=== PATIENT | female | born 1990 | race Caucasian/White ===

== ENCOUNTER 2021-01-24 14:41 | Emergency (ER) | payer OTHER, SELFPAY ==
[2021-01-24 14:55] VITALS: BP 107/65; PULSE 76; RESP 18; TEMP 36.6; O2SAT 99
--- NOTE | 2021-01-24 15:10 | ED.DENTAL ---
HPI - Dental/Oral General Chief complaint: Dental/Oral Stated complaint: Toothache Time Seen by Provider: 01/24/21 14:46 Source: patient, RN notes reviewed and old records reviewed Mode of arrival: ambulatory Limitations: no limitations History of Present Illness HPI Narrative: 30 year old female who presents to [facility] care with one week duration of pain to #31 tooth and surrounding gum and left ear pain. Patient has decayed broken #31 tooth with gum swollen and red surrounding the tooth, no drainage noted. Patient has history of anorexia and prior opiate addiction and poor dental care. Patient states that she does not have a dentist. Patient states no difficulty with swallowing or any shortness of breath no trismus noted.Patient has been taking Naprosyn for her pain. MD Complaint: tooth pain Location: Tooth # (#31) Onset (ago): week(s) (1) Duration: constant Severity: severe Severity scale (1-10): 8 Relieving factors: nothing Exacerbating factors: chewing and cold Context: history of dental caries and poor dental care Associated symptoms: gum swelling and ear pain Treatment prior to arrival: oral analgesic (naprosyn) Related Data Home Medications Medication Instructions Recorded Confirmed citalopram 20 mg PO DAILY 01/24/21 01/24/21 naproxen 500 mg PO BID 01/24/21 01/24/21 Allergies Allergy/AdvReac Type Severity Reaction Status Date / Time ibuprofen Allergy Unknown Itching Verified 01/24/21 15:04 FEXOFENADINE HCL Allergy Mild Itching Uncoded 08/01/15 10:45 Review of Systems Review of Systems: Narrative: CONSTITUTIONAL: Denies fever, chills, or sweats. EYES: Denies visual changes, redness, or discharge. ENT: Denies rhinorrhea, congestion, sore throat, positive right ear otalgia.broken decayed tooth #31 CARDIOVASCULAR: Denies chest pain, palpitations, or edema. RESPIRATORY: Denies cough or dyspnea. GASTROINTESTINAL: Denies abdominal pain, nausea, vomiting, or diarrhea. GENITOURINARY: Denies dysuria or hematuria. SKIN: Denies rash or itching. MUSCULOSKELETAL: Denies back pain, joint pain, or myalgia. NEUROLOGIC: Denies headache, numbness, or weakness. PSYCHIATRIC:Positive history of anxiety or depression. All systems reviewed & are unremarkable except as noted in HPI and below [facility] Past Medical History Medical History (Updated 01/27/21 @ 20:34 by Maday Andersen NP) Anorexia Anxiety and depression History of kidney problems states that kidney's don't filter good Surgical History Surgical History (Updated 01/27/21 @ 20:36 by Maday Andersen NP) No pertinent past surgical history Family History Family History (Updated 01/27/21 @ 20:36 by Maday Andersen NP) Other Hypertension Social History Social History (Updated 01/27/21 @ 20:43 by Maday Andersen NP) Smoking status: Unknown if ever smoked Alcohol intake: former Substance use: former 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 There is no relevant family history pertinent to the presenting complaint Exam Narrative: Exam Narrative: GENERAL: Well-appearing, well-nourished, and in mild distress. HEAD: Normocephalic, atraumatic. EYES: PERRLA and EOMI. ENT: Nares clear, no rhinorrhea or epistaxis. Mucous membranes moist.TM's normal with good light reflex, throat pink with no lesions or exudates, no tonsil enlargement, #31 tooth broken with noted decay, surrounding gum red and swollen with pain. No Rojelio angina or trismus noted. NECK: Supple.no lymphadenopathy CHEST: Clear to auscultation. No respiratory distress.SAO2 99% on room air HEART: Regular rate and rhythm. No murmur heard. Normal peripheral pulses. ABDOMEN: Soft, nontender, nondistended, normal active bowel sounds. EXTREMITIES: Normal range of motion. No edema. SKIN: Warm, d
== END 2021-01-24 15:30 | disposition home or self-care (01) ==
PROVIDERS: Emergency Provider Registered Nurse
DX: K04.7 Periapical abscess without sinus (principal); F41.9 Anxiety disorder, unspecified; F32.9 Major depressive disorder, single episode, unspecified
CPT/HCPCS: 99203; G0463

== ENCOUNTER 2021-02-19 16:01 | Emergency (ER) | payer OTHER, SELFPAY ==
[2021-02-19 16:07] VITALS: BP 103/58; PULSE 73; RESP 16; TEMP 36.7; O2SAT 99
== END 2021-02-19 19:00 | disposition left against medical advice (07) ==
LOC: ANHED 18:24
DX: K08.9 Disorder of teeth and supporting structures, unspecified (principal)
CPT/HCPCS: 99199

== ENCOUNTER 2021-04-02 08:00 | Emergency (ER) | payer OTHER, SELFPAY ==
[2021-04-02 08:00] VITALS: BP 101/58; PULSE 103; RESP 20; TEMP 36.4; O2SAT 99
[2021-04-02] MEDS: HYDROmorphone HCL INJ (*CRX) 1 MG/ML SYR IM (08:36)
--- NOTE | 2021-04-02 08:38 | ED.DENTAL ---
HPI - Dental/Oral General Chief complaint: Dental/Oral Stated complaint: r lower tooth pain Time Seen by Provider: 04/02/21 08:26 Source: patient Mode of arrival: ambulatory Limitations: no limitations History of Present Illness HPI Narrative: Patient is 30 years old white female presents with right lower gum severe pain, swelling. Started 4 days ago, started on antibiotics and ibuprofen 800 mg every 8 hours as needed through urgent care 2 days ago without improvement. Patient denies any fever, chills, headache. Related Data Home Medications Medication Instructions Recorded Confirmed citalopram 20 mg PO DAILY 01/24/21 01/24/21 amoxicillin-pot clavulanate tablet 04/02/21 ibuprofen 04/02/21 methadone 04/02/21 Allergies Allergy/AdvReac Type Severity Reaction Status Date / Time ibuprofen Allergy Unknown Itching Verified 04/02/21 08:06 FEXOFENADINE HCL Allergy Mild Itching Uncoded 04/02/21 08:06 Review of Systems Review of Systems: CONSTITUTIONAL: Denies fever, chills, or sweats. EYES: Denies visual changes, redness, or discharge. ENT: Denies rhinorrhea, congestion, sore throat, or otalgia. CARDIOVASCULAR: Denies chest pain, palpitations, or edema. RESPIRATORY: Denies cough or dyspnea. GASTROINTESTINAL: Denies abdominal pain, nausea, vomiting, or diarrhea. GENITOURINARY: Denies dysuria or hematuria. SKIN: Denies rash or itching. MUSCULOSKELETAL: Denies back pain, joint pain, or myalgia. NEUROLOGIC: Denies headache, numbness, or weakness. PSYCHIATRIC: Denies anxiety or depression. 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 Neurologic: Alert and oriented ?3, MICROBIOLOGY ANALYST is normal as tested, no gross motor deficit HENMT: Teeth image: 1. Swollen gum with abscess formation, extremely tender to touch Course Course Emergency Course: Stable Vital Signs Vital signs: Vital Signs Temperature 36.4 C 04/02/21 08:00 Pulse Rate 103 H 04/02/21 08:00 Respiratory Rate 20 04/02/21 08:00 Blood Pressure 101/58 L 04/02/21 08:00 Pulse Oximetry 99 04/02/21 08:00 Temperature 36.4 C 04/02/21 08:00 Pulse Rate 103 H 04/02/21 08:00 Respiratory Rate 20 04/02/21 08:00 Blood Pressure 101/58 L 04/02/21 08:00 Pulse Oximetry 99 04/02/21 08:00 Procedures Abscess I/D oral: Date of Incision: 04/02/21 Time of Incision: 09:19 Side (if applicable): right Local Anesthetic: none Technique: needle aspiration Amount of fluid expressed (mL): 1.5 Irrigation: Yes Packing used?: none I&D Results: Pus Complications: pain Abcess I&D Additional Comments: Right lower gum abscess, 18-gauge needle, 1.5 aspiration of purulent discharge, pat
[2021-04-02 09:06] VITALS: TEMP 36.4
== END 2021-04-02 09:27 | disposition home or self-care (01) ==
PROVIDERS: Emergency Provider Emergency Medicine
DX: K04.7 Periapical abscess without sinus (principal); F41.9 Anxiety disorder, unspecified; F32.9 Major depressive disorder, single episode, unspecified
CPT/HCPCS: 41800; 96372; 99283; J1170

== ENCOUNTER 2021-08-28 19:22 | Emergency (ER) | payer OTHER, SELFPAY ==
[2021-08-28 19:29] VITALS: BP 124/79; PULSE 65; RESP 16; TEMP 36.1; O2SAT 99
--- NOTE | 2021-08-28 19:37 | ED.DENTAL ---
HPI - Dental/Oral General Chief complaint: Dental/Oral Stated complaint: Tooth Pain Time Seen by Provider: 08/28/21 19:33 Source: patient and RN notes reviewed Mode of arrival: ambulatory Limitations: no limitations History of Present Illness HPI Narrative: Patient presents today complaining of right upper gumline pain for the past 3 days with swelling that started a few days ago. Pain is radiating to her right scientologist and eyebrow area. She currently rates her pain 8/10 and has been taking ibuprofen, Tylenol, naproxen, and using some topical Orajel and rinses without much relief. Patient has history of anorexia which has led to gross dental decay. States she does have a dentist and has been trying fixed. Denies recent antibiotic use. States her last dental infection was approximately 6 months ago. MD Complaint: tooth pain Related Data Home Medications Medication Instructions Recorded Confirmed citalopram 20 mg PO DAILY 01/24/21 08/28/21 methadone 04/02/21 Review of Systems Review of Systems: CONSTITUTIONAL: Denies body aches, fever, chills, or sweats. EYES: Denies visual changes, redness, or discharge. ENT: Denies rhinorrhea, congestion, sore throat, or otalgia.+ Dental pain CARDIOVASCULAR: Denies chest pain, palpitations, or edema. RESPIRATORY: Denies cough or dyspnea. GASTROINTESTINAL: Denies abdominal pain, nausea, vomiting, or diarrhea. GENITOURINARY: Denies dysuria or hematuria. SKIN: Denies rash, itching, or wounds. MUSCULOSKELETAL: Denies back pain, joint pain, or myalgia. NEUROLOGIC: Denies headache, numbness, tingling, or weakness. PSYCH: Denies depression or anxiety. 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 Please see nursing chart for further information. There is no relevant family history pertinent to the presenting complaint Exam Narrative: GENERAL: Well-appearing, well-nourished, and in no acute distress. HEAD: Normocephalic, atraumatic. EYES: EOMI. No redness or drainage. Conjunctivae normal. ENT: Mucous membranes pink and moist. Throat normal. Uvula midline. Gross dental decay. Swelling and redness of her right upper gumline. NECK: Normal AROM. Supple. No lymphadenopathy. CHEST: No respiratory distress. EXTREMITIES: Normal range of motion. No edema. SKIN: Warm, dry, no rash. Capillary refill normal. Normal skin turgor. NEURO: No focal deficits. Alert and oriented x3. Gait steady. PSYCH: Normal affect. No signs of depression or anxiety. Course Course Level of Care: Express Care Visit Vital Signs Vital signs: Vital Signs Temperature 97.0 F L 08/28/21 19:29 Pulse Rate 65 08/28/21 19:29 Respiratory Rate 16 08/28/21 19:29 Blood Pressure 124/79 08/28/21 19:29 Pulse Oximetry 99 08/28/21 19:29 Temperature 97.0 F L 08/28/21 19:29 Pulse Rate 65 08/28/21 19:29 Respiratory Rate 16 08/28/21 19:29 Blood Pressure 124/79 08/28/21 19:29 Pulse Oximetry 99 08/28/21 19:29 Reviewed. Pt has been instructed to follow up with her PCP regarding her elevated blood pressure today. MDM - Dental/Oral Differential Diagnosis Differentia
== END 2021-08-28 19:49 | disposition home or self-care (01) ==
PROVIDERS: Emergency Provider Nurse Practitioner
DX: K04.7 Periapical abscess without sinus (principal); F41.9 Anxiety disorder, unspecified; F32.A Depression, unspecified
CPT/HCPCS: 99213; G0463

== ENCOUNTER 2025-01-26 14:04 | Emergency (ER) | payer OTHER, SELFPAY ==
--- NOTE | 2025-01-26 | CONSULT_PTH ---
PATIENT: Naila Harry LOC: [facility] U#:[id number] AGE/SX: 34/F ROOM: RE01/26/[address]: Gucci Hood MD : 1990 BED: DIS: 01/26/2025 SPEC #: [id number] RECD: 01/26/25 17:44 STATUS: MARK REQ #: [id number] KATHLEEN: 01/26/25 00:[address]: Gucci Hood DEPT: [facility] Consult RECD BY: Dashawn Bernabe ENTERED: 01/26/25 17:50 SP TYPE: Consult OTHR DR: SUPER[employer] PHYSICIAN Tissues: A - Peripheral Smear Procedures: Hematology Consult
--- NOTE | ~2025-01-26 | CT_ITS ---
CT brain wo con Ordering provider: Gucci Hood MD History: 34 years Female with . trauma . Comparison: None. Technique: CT of the head without contrast. Radiation reduction technique utilized.The dose-length pr oduct was 605.33 mGy-cm. FINDINGS: BRAIN PARENCHYMA AND CSF SPACES: No midline shift, mass effect or hemorrhage. The brain parenchyma a nd CSF spaces are otherwise normal. VISUALIZED PARANASAL SINUSES: Well aerated. MASTOIDS: Well aerated. BONES: The bones appear intact. SOFT TISSUES: Visualized nasopharynx is normal. Superficial soft tissues are normal. IMPRESSION: No acute intracranial findings. Reviewed, dictated and finalized at location A.
[2025-01-26 14:07] VITALS: BP 116/88; PULSE 134; RESP 16; TEMP 36.4; O2SAT 100
--- OUTSIDE RECORDS SUMMARY | 2025-01-26 14:12 | XMS_ITS | Patient Health Record ---
Author Organization [facility] Address [address] [place] [address] Care Team Providers Care Contact Center Rep Name Role Phone Dashawn Earl Primary Care Provider [phone] Solitario Smith Unavailable [phone] Gavin Tavarez Unavailable [phone] Ana Gallo Unavailable [phone] Jerome Montez Unavailable [phone] Elly Landis Unavailable [phone] Marjorie Garza Unavailable [phone] Gisella Rivera Unavailable [phone] Allergies No Known Allergies Results Component Value Reference Range Notes Urinalysis In-House, Routine Reviewed date:07/23/2024 01:31:49 PM Interpretation: Performing Lab: Notes/Report: Urine-Color clear Appearance yadi Leukocytes neg Nitrite, Urine pos Urobilinogen,Semi-Qn 0.2 Protein neg pH 5.5 Occult Blood mod Specific [place] 1.030 Ketones neg Bilirubin neg Glucose neg 14 Panel Urine Drug Screen Reviewed date:01/05/2025 01:50:29 PM Interpretation: Performing Lab: Notes/Report: THC POS LINDA neg MOP (OPI) POS AMP neg MET neg BAR neg BZO POS MDMA neg MTD neg OXY neg PCP neg BUP POS TCA neg FTY neg Medication Assisted Treatmen t (MAT) Buprenorphine, Norbuprenorphine, and Naloxone MS Confirmation, Urine Reviewed date:01/12/2025 09:37:38 AM Interpretation: Performing Lab:[employer], [address] [place] [address], Phone - [phone], Director - [facility] Notes/Report: Creatinine 33 >=20 mg/dL REFERENCE RANGE : Ref Range>=20 BUPRENORPHINE ++POSITIVE++ Buprenorphine 233 Norbuprenorphine 576 N/B Ratio 2.47 >=0.3 OPIATE ANTAGONIST ++POSITIVE++ Naloxone 1567 Testing Threshold: buprenorphine, 1.0 ng/mL norbuprenorphine, 5.0 ng/mL naloxone, 10 ng/mL This test was developed and its performance characteristics determined by [facility]. It has not been cleared or approved by the Food and Drug Administration. 12 Panel Urine Drug Screen Reviewed date:07/23/2024 01:40:55 PM Interpretation: Performing Lab: Notes/Report: THC POS LINDA neg MOP (OPI) neg AMP neg MET neg BAR neg BZO POS MDMA neg MTD neg OXY neg PCP neg BUP POS 12 Panel Urine Drug Screen Reviewed date:08/27/2024 08:45:33 AM Interpretation: Performing Lab: Notes/Report: THC pos LINDA neg MOP (OPI) neg AMP neg MET neg BAR neg BZO pos MDMA neg MTD neg OXY neg PCP neg BUP pos 12 Panel Urine Drug Screen Reviewed date:11/06/2024 09:56:20 AM Interpretation: Performing Lab: Notes/Report: THC POS LINDA neg MOP (OPI) neg AMP neg MET neg BAR neg BZO neg MDMA neg MTD neg OXY neg PCP neg BUP POS Medication Assisted Treatmen t (MAT) Buprenorphine, Norbuprenorphine, and Naloxone MS Confirmation, Urine Reviewed date:03/16/2024 09:14:04 AM Interpretation: Performing Lab:[facility], [address] [place] [address], Phone - [phone], Director - [facility] Notes/Report: Creatinine 73 Testing Threshold: buprenorphine, 1.0 ng/mL norbuprenorphine, 5.0 ng/mL naloxone, 10 ng/mL This test was developed and its performance characteristics determined by [facility]. It has not been cleared or approved by the Food and Drug Administration. REFERENCE RANGE: Ref Range>=20 BUPRENORPHINE ++POSITIVE++ Buprenorphine 170 Norbuprenorphine 556 N/B Ratio 3.27 >=0.3 OPIATE ANTAGONIST ++POSITIVE++ Naloxone 533 12 Panel Urine Drug Screen Reviewed date:03/30/2024 09:10:05 AM Interpretation: Performing Lab: Notes/Report: THC POS LINDA neg MOP (OPI) neg AMP neg MET neg BAR neg BZO neg MDMA neg MTD neg OXY neg PCP neg BUP POS 12 Panel Urine Drug Screen Reviewed date:05/12/2024 01:45:49 PM Interpretation: Performing Lab: Notes/Report: THC POS LINDA neg MOP (OPI) neg AMP neg MET neg BAR neg BZO neg MDMA neg MTD neg OXY neg PCP neg BUP POS 14 Panel Urine Drug Screen Reviewed date:12/25/2024 02:52:18 PM Interpretation: Performing Lab: Notes/Report: THC POS LINDA neg MOP (OPI) POS AMP neg MET neg BAR neg BZO POS MDMA neg MTD neg OXY neg PCP neg BUP POS TCA neg FTY neg 12 Panel Urine Drug Screen Reviewed date:03/11/2024 01:19:38 PM Interpretation: Performing Lab: Notes/Report: THC POS LINDA neg MOP (OPI) neg AMP neg MET neg BAR neg BZO neg MDMA neg MTD neg OXY neg PCP neg BUP POS Urinalysis In-House, Routine Reviewed date:02/11/2024 11:42:29 AM Interpretation: Performing Lab: Notes/Report: Urine-Color CLOUDY Appearance DARK Leukocytes N Nitrite, Urine P Urobilinogen,Semi-Qn 0.2 Protein N pH 7.0 Ketones NEG Bilirubin NEG Glucose NEG 12 Panel Urine Drug Screen Reviewed date:02/11/2024 11:42:29 AM Interpretation: Performing Lab: Notes/Report: THC POS LINDA NEG MOP (OPI) NEG AMP NEG MET NEG BAR NEG BZO NEG MDMA NEG MTD NEG OXY NEG PCP NEG BUP POS 12 Panel Urine Drug Screen Reviewed date:06/16/2024 02:33:42 PM Interpretation: Performing Lab: Notes/Report: THC POS LINDA neg MOP (OPI) neg AMP neg MET neg BAR neg BZO POS MDMA neg MTD neg OXY neg PCP neg BUP POS 12 Panel Urine Drug Screen Reviewed date:05/22/2024 02:09:10 PM Interpretation: Performing Lab: Notes/Report: THC POS LINDA NEG MOP (OPI) NEG AMP NEG MET NEG BAR NEG BZO POS MDMA NEG MTD NEG OXY NEG PCP NEG BUP POS Reason For Referral Reason Counseling (brief or long-term), significant other has terminal illness Diagnosis 1 Opioid use disorder (F11.99) Referral Organization [facility] Referring Provider First Name Gisella Referring Provider Last Name Miguel Referring Provider Speciality Psychiatry Referred Provider Specialty Behavioral [facility] Clinical Notes Adelina Acosta 024 11:21:37 AM > HN contacted client regarding referral for starting therapy with [facility]. HN provided client with process of calling central access for same day scheduling. Client was agreeable with the referral and stated no other needs at this time. Referral Priority Routine Reason Therapy = Client anish cheek benefit from immediate short term time limited therapy. She was able to get into therapy at [facility] in mid-July but is suffering with extreme anxiety/depression r/t BF's terminal illness. Diagnosis 1 Bipolar 1 disorder, depressed (F31.9) Diagnosis 2 Anxiety disorder, un specified (F41.9) Diagnosis 3 Insomnia, unspecifie d type (G47.00) Referral Organization [facility] Referring Provider First Name Jerome Referring Provider Last Name Tc Referring Provider Speciality Psychiatry Referred Provider Specialty Behavioral [facility] Clinical Notes Jenny Lino 02:36:07 PM > states has therapist at [facility] Referral Priority Routine Medications Medication SIG (Take, Route, Frequency, Duration) Notes Start Date End Date Status Buprenorphine HCl-Naloxone HCl 4-1 MG 1 film under the tongue and allow to dissolve Sublingual three times daily; Duration: 15 days 01/05/2025 Active Buprenorphine HCl-Naloxone HCl 8-2 MG 1 film under the tongue and allow to dissolve Sublingual three times daily; Duration: 15 days 01/05/2025 Active OLANZapine 15 MG 1 tablet at bedtime Orally Once a day; Duration: 30 days . 05/28/2024 Active busPIRone HCl 10 MG 1 tablet Orally Twic e a day Active hydrOXYzine HCl 25 MG 1-2 tablet as need ed Orally at bedtime; Duration: 30 days 12/17/2023 Active traZODone HCl 100 MG 2 tablets at bedtim e Orally Once a day; Duration: 30 days . 05/22/2024 Active Albuterol Sulfate HFA 108 (90 Base) MCG/ACT 1 puff as needed Inhalation every 4 hrs Active cloNIDine HCl 0.1 MG 1 tablet Orally twi ce a day 09/12/2022 Not-Taking Folic Acid 1 MG 1 tablet Once a day Active buPROPion HCl ER (XL) 300 MG TAKE 1 TABLET BY MOUTH EVERY MORNING; Duration: 30 days Active Vitamin B1 100 MG 1 tablet Once a day Active LORazepam 1 MG 1 tablet Once a day; Duration: 30 days As needed for extreme anxiety or panic attack . 12/28/2024 Active FLUoxetine HCl 40 MG 1 capsule Orally On ce a day; Duration: 30 days . 05/28/2024 Active OLANZapine 5 MG 0.5 - 1 tablet Orally Once a day; Duration: 30 days As needed for severe anxiety . 06/10/2024 Active FLUoxetine HCl 20 MG 1 capsule (take wit h 40 mg capsule for 60 mg daily total) Orally Once a day; Duration: 30 days . 08/03/2024 Active Immunizations Vaccine Route Administration Date Status Comme nts FLU VAC NO PRSV 4VAL 6 mo+ IM Intramuscular 05/13/2023 Administered Kenia Bernabe 05/13/2023 10:01:26 AM > Patient tolerated injection well. Social History Tobacco Use: Social History Observation Description Date Details (start date - stop date) Current Smoker NA - NA Sex Assigned At : Social History Observation Description Sex Assigned At Female PRAPARE Question Answer Notes Date Completed/Updated: 03/11/2024 What is your current housing situation? I have housing Are you worried about losing your housing? No What is the highest level of school that you have finished? 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 Check all that apply I do not have problems meeting my needs Has lack of transportation k ept you from medical appointments, meetings, work or from getting things needed for daily living? No How often do you see or talk to people that you care about and feel close to? (For example: talking to friends on the phone, visiting friends or family, going to spiritism or club meetings) More than 5 times a week How stressed are you? Stress is when someone feels tense, nervous, anxious, or can\t sleep at night because their mind is troubled Somewhat In the past year have you sp ent more than 2 nights in a row in a long-term, penitentiary, half-way center, or juvenile correctional facility? No Are you a refugee? No What country are you from? [place] Do you feel physically and e motionally safe where you currently live? Yes In the past year, have you b een afraid of your partner or ex-partner? No PRAPARE Score: 9 Tobacco Control (Standard) Question Answer Notes Tobacco use: Current smoker Additional Findings: Tobacco user e-cigarette Problems Problem Type SNOMED Code ICD Code Onset Dates Problem Status W/U Status Risk Notes Problem Anxiety disorder (083729728) Anxiety disorder, unspecified (F41.9) Active confirmed Problem Psychoactive substance dependence (5342876) Chemical dependency (F19.20) Active confirmed Problem Anxiety (19929645) Situational anxiety (F41.8) Active confirmed Problem Bipolar disorder (42580050) Bipolar 1 disorder, depressed (F31.9) Active confirmed Problem Insomnia (963729913) Insomnia, unspecified type (G47.00) Active confirmed Problem Reactive depression (situational) (25881161) Situational depression (F43.21) Active confirmed Problem Opioid use disorder (3198338528) Opioid use disorder (F11.99) Active confirmed Problem Tobacco user (563387306) Nicotine dependence with current use (F17.200) Active confirmed Problem Mental disorder caused by drug (514542692) Opioid use with opioid-induced disorder (F11.99) Active confirmed Vital Signs Heart Rate 90 /min 01/05/2025 Temperature 98.0 degrees Fahrenheit 11/06/2024 Respiratory Rate 16 /min 01/05/2025 Oximetry 96 % 01/05/2025 Blood pressure diastolic 52 mm Hg 01/05/2025 Height 64 in 01/05/2025 Blood pressure systolic 92 mm Hg 01/05/2025 Weight 131 lb 2 oz lbs 01/05/2025 BMI 22.51 kg/m2 01/05/2025 Encounters Encounter Location Date Provider Diagnosis [address] [place] [address] 02/10/2024 Gavin Tavarez Pyelonephritis of right kidney N12 ; Opioid use with opioid-induced disorder F11.99 and Nicotine dependence, unspecified, uncomplicated F17.[address] [place] [address] 03/11/2024 Gisella Szlufik Opioid use disorder F11.[address] [address] 03/11/2024 Ana Gallo [address] [address] 03/30/2024 Gisella Szlufik Opioid use disorder F11.99 and Nicotine dependence, unspecified, uncomplicated F17.[address] [address] 05/12/2024 Gisella Szlufik Opioid use disorder F11.99 and Nicotine dependence, unspecified, uncomplicated F17.[address] [address] 05/22/2024 Dashawn Earl Opioid use with opioid-induced disorder F11.99 ; Anxiety disorder, unspecified F41.9 ; Depression, unspecified F32.A ; Insomnia, unspecified type G47.00 and Nicotine dependence, unspecified, uncomplicated F17.[address] [address] 05/28/2024 Jerome Montez Nicotine dependence, unspecified, uncomplicated F17.200 ; Bipolar 1 disorder, depressed F31.9 and Anxiety disorder, unspecified F41.[address] [address] 06/10/2024 Jerome Montez Bipolar 1 disorder, depressed F31.9 ; Anxiety disorder, unspecified F41.9 and Insomnia, unspecified type G47.[address] [address] 06/16/2024 Gisella Szlufik Opioid use disorder F11.99 and Nicotine dependence, unspecified, uncomplicated F17.[address] [address] 06/30/2024 Jerome Montez Bipolar 1 disorder, depressed F31.9 ; Insomnia, unspecified type G47.00 and Anxiety disorder, unspecified F41.[address] [place] [address] 07/23/2024 Dashawn Earl Urinary symptom or sign R39.9 ; Opioid use disorder F11.99 and Nicotine dependence, unspecified, uncomplicated F17.[address] [address] 08/03/2024 Jerome Montez Bipolar 1 disorder, depressed F31.9 ; Insomnia, unspecified type G47.00 and Anxiety disorder, unspecified F41.[address] [address] 08/27/2024 Dashawn Earl Opioid use disorder F11.99 and Nicotine dependence, unspecified, uncomplicated F17.[address] [address] 09/07/2024 Jerome Montez Bipolar 1 disorder, depressed F31.9 ; Anxiety disorder, unspecified F41.9 and Insomnia, unspecified type G47.[address] [address] 11/06/2024 Solitario Smith Opioid use with opioid-induced disorder F11.99 and Nicotine dependence with current use F17.[address] [address] 12/25/2024 Elly Landis Opioid use with opioid-induced disorder F11.99 and Nicotine dependence with current use F17.[address] [address] 12/28/2024 Jerome Montez Bipolar 1 disorder, depressed F31.9 ; Anxiety disorder, unspecified F41.9 and Insomnia, unspecified type G47.[address] [address] 01/05/2025 Gisella Rivera Opioid use with opioid-induced disorder F11.[address] [address] 02/10/2024 Gisella Rivera [address] [place] [address] 06/08/2024 Jerome Montez [address] [address] 06/26/2024 Jerome Montez [address] [address] 07/01/2024 Jerome Montez [address] [address] 07/02/2024 Jerome Montez Bipolar 1 disorder, depressed F31.[address] [address] 07/29/2024 Jerome Montez [address] [address] 12/11/2024 Jerome Montez Bipolar 1 disorder, depressed F31.9 ; Anxiety disorder, unspecified F41.9 and Insomnia, unspecified type G47.[address] [address] 01/01/2025 Marjorie Garza Assessments Encounter Date Diagnosis (ICD Code) Assessment Notes Treatment Notes Treatment Clinical Notes Section Notes 02/10/2024 Pyelonephritis of right kidney (ICD-10 - N12) 03/11/2024 Opioid use disorder (ICD-10 - F11.99) 03/30/2024 Nicotine dependence, unspecified, uncomplicated (ICD-10 - F17.200) 03/30/2024 Opioid use disorder (ICD-10 - F11.99) 05/12/2024 Nicotine dependence, unspecified, uncomplicated (ICD-10 - F17.200) 05/12/2024 Opioid use disorder (ICD-10 - F11.99) 05/22/2024 Anxiety disorder, unspecified (ICD-10 - F41.9) 05/22/2024 Opioid use with opioid-induced disorder (ICD-10 - F11.99) 05/28/2024 Nicotine dependence, unspecified, uncomplicated (ICD-10 - F17.200) Client agreeable to starting olanzapine/fluox etine combination to treat high levels of anxiety/depressi on that appears to also have basis in bipolar 1 when carefully screened. Client with high level of stressors currently as BF dx with rare form of cancer and has not been doing well. 05/28/2024 Bipolar 1 disorder, depressed (ICD-10 - F31.9) Client agreeabl e to starting olanzapine/fluox etine combination to treat high levels of anxiety/depressi on that appears to also have basis in bipolar 1 when carefully screened. Client with high level of stressors currently as BF dx with rare form of cancer and has not been doing well. 06/10/2024 Bipolar 1 disorder, depressed (ICD-10 - F31.9) Client agreeabl e to increase in olanzapine and fluoxetine to aide with anxiety and depression and trazodone to aide with insomnia. Ativan refilled for use as rescue medication for panic attacks and to be used as secondary medication only. 06/16/2024 Nicotine dependence, unspecified, uncomplicated (ICD-10 - F17.200) 06/16/2024 Opioid use disorder (ICD-10 - F11.99) 06/30/2024 Bipolar 1 disorder, depressed (ICD-10 - F31.9) Increase to trazodone and olanzapine at night ordered and olanzapine changed to disintegrating to help with sleep initiation. Referral placed for request for immediate short term therapy to bridge client till mid July appt at [facility]. Client is agreeable to these treatment plan changes. 07/02/2024 Bipolar 1 disorder, depressed (ICD-10 - F31.9) 07/23/2024 Urinary symptom or sign (ICD-10 - R39.9) 07/23/2024 Opioid use disorder (ICD-10 - F11.99) 08/03/2024 Bipolar 1 disorder, depressed (ICD-10 - F31.9) Client notably better in affect during session despite continued high PHQ-9 scoring. Client able to recognize realistic goals and much calmer with better control of anxiety. She requests a medication adjustment if something could make me happier. Discussed that she is going through very difficult time and may struggle to find rodriguez in this season. Discussed can raise fluoxetine from 40 mg to 60 mg to see if helpful but to watch for signs/symptoms of elias (discussed what those are) and to call office should these occur or if anxiety would worsen not get better with higher dosage. Client verbalizes understanding. 08/27/2024 Opioid use disorder (ICD-10 - F11.99) 09/07/2024 Bipolar 1 disorder, depressed (ICD-10 - F31.9) Client is open to trial of bupropion in am to see if helpful for motivation/depre ssion. However, it was discussed with client that the circumstances she is in may not be effected by medication given the dense emotional toil she is impacted with on daily basis. Encouraged continuation of therapy with focus on grief counseling. Client given emotional support and normalization of grief process. No other changes to treatment plan. 11/06/2024 Nicotine dependence with current use (ICD-10 - F17.200) 11/06/2024 Opioid use with opioid-induced disorder (ICD-10 - F11.99) 12/11/2024 Bipolar 1 disorder, depressed (ICD-10 - F31.9) 12/25/2024 Opioid use with opioid-induced disorder (ICD-10 - F11.99) Increased freq of appts with current UDS positive, call with any issues/concerns. Significant other on hospice, encouraged to be in communication with support system frequently. Patient agrees to take medication as prescribed. Discussed medication side effects, adverse effects, risks, benefits, as well as interactions. Encouraged non-use of opioids. Client to make provider aware of any medication changes that could interact with treatment. Recommended participation in recovery groups/counseling services to help maintain sobriety. May contact the office with any questions or concerns. 12/28/2024 Bipolar 1 disorder, depressed (ICD-10 - F31.9) 01/05/2025 Opioid use with opioid-induced disorder (ICD-10 - F11.99) Encouraged positive coping mechanisms 12/25/2024 Nicotine dependence with current use (ICD-10 - F17.200) 12/28/2024 Anxiety disorder, unspecified (ICD-10 - F41.9) 12/11/2024 Anxiety disorder, unspecified (ICD-10 - F41.9) 09/07/2024 Anxiety disorder, unspecified (ICD-10 - F41.9) Client is open to trial of bupropion in am to see if helpful for motivation/depre ssion. However, it was discussed with client that the circumstances she is in may not be effected by medication given the dense emotional toil she is impacted with on daily basis. Encouraged continuation of therapy with focus on grief counseling. Client given emotional support and normalization of grief process. No other changes to treatment plan. 08/03/2024 Insomnia, unspecified type (ICD-10 - G47.00) Client notably better in affect during session despite continued high PHQ-9 scoring. Client able to recognize realistic goals and much calmer with better control of anxiety. She requests a medication adjustment if something could make me happier. Discussed that she is going through very difficult time and may struggle to find rodriguez in this season. Discussed can raise fluoxetine from 40 mg to 60 mg to see if helpful but to watch for signs/symptoms of elias (discussed what those are) and to call office should these occur or if anxiety would worsen not get better with higher dosage. Client verbalizes understanding. 08/27/2024 Nicotine dependence, unspecified, uncomplicated (ICD-10 - F17.200) 07/23/2024 Nicotine dependence, unspecified, uncomplicated (ICD-10 - F17.200) 06/30/2024 Insomnia, unspecified type (ICD-10 - G47.00) Increase to trazodone and olanzapine at night ordered and olanzapine changed to disintegrating to help with sleep initiation. Referral placed for request for immediate short term therapy to bridge client till mid July appt at [facility]. Client is agreeable to these treatment plan changes. 06/10/2024 Anxiety disorder, unspecified (ICD-10 - F41.9) Client agreeabl e to increase in olanzapine and fluoxetine to aide with anxiety and depression and trazodone to aide with insomnia. Ativan refilled for use as rescue medication for panic attacks and to be used as secondary medication only. 05/28/2024 Anxiety disorder, unspecified (ICD-10 - F41.9) Client agreeabl e to starting olanzapine/fluox etine combination to treat high levels of anxiety/depressi on that appears to also have basis in bipolar 1 when carefully screened. Client with high level of stressors currently as BF dx with rare form of cancer and has not been doing well. 02/10/2024 Opioid use with opioid-induced disorder (ICD-10 - F11.99) 05/22/2024 Depression, unspecified (ICD-10 - F32.A) 02/10/2024 Nicotine dependence, unspecified, uncomplicated (ICD-10 - F17.200) 05/22/2024 Insomnia, unspecified type (ICD-10 - G47.00) 06/10/2024 Insomnia, unspecified type (ICD-10 - G47.00) Client agreeable to increase in olanzapine and fluoxetine to aide with anxiety and depression and trazodone to aide with insomnia. Ativan refilled for use as rescue medication for panic attacks and to be used as secondary medication only. 06/30/2024 Anxiety disorder, unspecified (ICD-10 - F41.9) Increase to trazodone and olanzapine at night ordered and olanzapine changed to disintegrating to help with sleep initiation. Referral placed for request for immediate short term therapy to bridge client till mid July appt at [facility]. Client is agreeable to these treatment plan changes. 08/03/2024 Anxiety disorder, unspecified (ICD-10 - F41.9) Client notably better in affect during session despite continued high PHQ-9 scoring. Client able to recognize realistic goals and much calmer with better control of anxiety. She requests a medication adjustment if something could make me happier. Discussed that she is going through very difficult time and may struggle to find rodriguez in this season. Discussed can raise fluoxetine from 40 mg to 60 mg to see if helpful but to watch for signs/symptoms of elias (discussed what those are) and to call office should these occur or if anxiety would worsen not get better with higher dosage. Client verbalizes understanding. 09/07/2024 Insomnia, unspecified type (ICD-10 - G47.00) Client is open to trial of bupropion in am to see if helpful for motivation/depre ssion. However, it was discussed with client that the circumstances she is in may not be effected by medication given the dense emotional toil she is impacted with on daily basis. Encouraged continuation of therapy with focus on grief counseling. Client given emotional support and normalization of grief process. No other changes to treatment plan. 12/11/2024 Insomnia, unspecified type (ICD-10 - G47.00) 12/28/2024 Insomnia, unspecified type (ICD-10 - G47.00) 05/22/2024 Nicotine dependence, unspecified, uncomplicated (ICD-10 - F17.200) 02/10/2024 Other Learning About the Safe Use of Antibiotics material was discussed. Pt was educated on use of antibiotic medication including dosing, side effects, adverse effects and anticipated response. Pt was also educated on importance of completing full course of treatment as ordered. Patient voiced understanding of all. 03/11/2024 Other Client agrees to take medication as prescribed. Discussed medication side effects, adverse effects, risks, benefits, as well as interactions. Encouraged non-use of opioids and other illicit substances. Has naloxone. Understand that discontinuing buprenorphine increases the risk of overdose upon return to illicit opioid use. Know that that use of alcohol or benzodiazepines with buprenorphine increases the risk of overdose and . Education provided about safe storage of medications. Encourage participation in recovery groups/counseling services. Patient understands that all treating providers/physici ans should be informed of buprenorphine use as part of a Medication Assisted Recovery program. Contact office with questions or concerns. 03/11/2024 Other Provided case management services to address social determinants of health needs and reduce barriers to health care services. 05/12/2024 Other Client agrees to take medication as prescribed. Discussed medication side effects, adverse effects, risks, benefits, as well as interactions. Encouraged non-use of opioids and other illicit substances. Has naloxone. Discontinuing buprenorphine increases the risk of overdose upon return to illicit opioid use. Use of alcohol or benzodiazepines with buprenorphine increases the risk of overdose and . Education provided about safe storage of medications. Encouraged participation in recovery groups/counseling services. Contact office with questions or concerns. 05[place]28/[place]24 [place] services. Discussed use of lorazapam as short term only until anxiety under control and to use lowest dose possible (0.5 tablet) to limit risks of respiratory depression. Client verbalized understanding. Discussed sleep hygiene and caffeine intake with encouragement to limit electronic devices an hour before bed and to limit caffeine after 3:00pm. Exercise benefits for mood and health discussed. Psychoeducation regarding psychiatric illness provided. Client was educated about risks and benefits of medication, alternatives to medication, off label uses of medication, suicidal ideation with SSRIs, self-administrati on and compliance with medication along with how to safely store medication. Verbal informed consent obtained. Client agrees to return sooner if symptoms worsen or if suicidal or homicidal ideations occur. Client has the phone number to the 24-hour crisis line at [facility]. Questions addressed. Client verbalized understanding of all information and is agreeable to treatment plan. Client agreeable to starting olanzapine/fluox etine combination to treat high levels of anxiety/depressi on that appears to also have basis in bipolar 1 when carefully screened. Client with high level of stressors currently as BF dx with rare form of cancer and has not been doing well. 06/10/[place]24 [place] tx and has been educated to take lorazepam apart from this and in lowest amount possible (0.5 tablet if possible) and for shortest duration possible to limit risk of respiratory depression. Discussed sleep hygiene and caffeine intake with encouragement to limit electronic devices an hour before bed and to limit caffeine after 3:00pm. Exercise benefits for mood and health discussed. Psychoeducation regarding psychiatric illness provided. Client was educated about risks and benefits of medication, alternatives to medication, off label uses of medication, suicidal ideation with SSRIs, self-administrati on and compliance with medication along with how to safely store medication. Verbal informed consent obtained. Client agrees to return sooner if symptoms worsen or if suicidal or homicidal ideations occur. Client has the phone number to the 24-hour crisis line at [facility]. Questions addressed. Client verbalized understanding of all information and is agreeable to treatment plan. Client agreeable to increase in olanzapine and fluoxetine to aide with anxiety and depression and trazodone to aide with insomnia. Ativan refilled for use as rescue medication for panic attacks and to be used as secondary medication only. 06/16/2024 Other Patient agrees to take medication as prescribed. Discussed medication side effects, adverse effects, risks, benefits, as well as interactions. Encouraged non-use of opioids and other illicit substances. Has naloxone. Discontinuing buprenorphine increases the risk of overdose upon return to illicit opioid use. Use of alcohol or benzodiazepines with buprenorphine increases the risk of overdose and . Discussed increased risk of respiratory depression with concurrent use of buprenorphine and benzodiazepines. Education provided about safe storage of medications. Encouraged participation in recovery groups/counseling services. Contact office with questions or concerns. 06/30/2024 [place]. Discussed sleep hygiene and caffeine intake with encouragement to limit electronic devices an hour before bed and to limit caffeine after 3:00pm. Exercise benefits for mood and health discussed. Psychoeducation regarding psychiatric illness provided. Client was educated about risks and benefits of medication, alternatives to medication, off label uses of medication, suicidal ideation with SSRIs, self-administrati on and compliance with medication along with how to safely store medication. Verbal informed consent obtained. Client agrees to return sooner if symptoms worsen or if suicidal or homicidal ideations occur. Client has the phone number to the 24-hour crisis line at [facility]. Questions addressed. Client verbalized understanding of all information and is agreeable to treatment plan. Increase to trazodone and olanzapine at night ordered and olanzapine changed to disintegrating to help with sleep initiation. Referral placed for request for immediate short term therapy to bridge client till mid July appt at [facility]. Client is agreeable to these treatment plan changes. 07/23/2024 Other Potential side effects of buprenorphine discussed, as well as taking buprenorphine as prescribed. Dangers of using other controlled substances (prescribed or illegal/including benzodiazepines) with buprenorphine discussed. Patient understands taking other narcotics with buprenorphine could lead to respiratory distress and even . Patient understands that ALL treating providers/physici ans should be informed of buprenorphine use as part of a Medication Assisted Treatment program 08/03/[place]24 [place]. Discussed sleep hygiene and caffeine intake with encouragement to limit electronic devices an hour before bed and to limit caffeine after 3:00pm. Exercise benefits for mood and health discussed. Psychoeducation regarding psychiatric illness provided. Client was educated about risks and benefits of medication, alternatives to medication, off label uses of medication, suicidal ideation with SSRIs, self-administrati on and compliance with medication along with how to safely store medication. Verbal informed consent obtained. Client agrees to return sooner if symptoms worsen or if suicidal or homicidal ideations occur. Client has the phone number to the 24-hour crisis line at [facility]. Questions addressed. Client verbalized understanding of all information and is agreeable to treatment plan. Client notably better in affect during session despite continued high PHQ-9 scoring. Client able to recognize realistic goals and much calmer with better control of anxiety. She requests a medication adjustment if something could make me happier. Discussed that she is going through very difficult time and may struggle to find rodriguez in this season. Discussed can raise fluoxetine from 40 mg to 60 mg to see if helpful but to watch for signs/symptoms of elias (discussed what those are) and to call office should these occur or if anxiety would worsen not get better with higher dosage. Client verbalizes understanding. 08/27/2024 Other Potential side effects of buprenorphine discussed, as well as taking buprenorphine as prescribed. Dangers of using other controlled substances (prescribed or illegal/including benzodiazepines) with buprenorphine discussed. Patient understands taking other narcotics with buprenorphine could lead to respiratory distress and even . Patient understands that ALL treating providers/physici ans should be informed of buprenorphine use as part of a Medication Assisted Treatment program 09/07/2024 [place]. Discussed sleep hygiene and caffeine intake with encouragement to limit electronic devices an hour before bed and to limit caffeine after 3:00pm. Exercise benefits for mood and health discussed. Psychoeducation regarding psychiatric illness provided. Client was educated about risks and benefits of medication, alternatives to medication, off label uses of medication, suicidal ideation with SSRIs, self-administrati on and compliance with medication along with how to safely store medication. Verbal informed consent obtained. Client agrees to return sooner if symptoms worsen or if suicidal or homicidal ideations occur. Client has the phone number to the 24-hour crisis line at [facility]. Questions addressed. Client verbalized understanding of all information and is agreeable to treatment plan. Client is open to trial of bupropion in am to see if helpful for motivation/depre ssion. However, it was discussed with client that the circumstances she is in may not be effected by medication given the dense emotional toil she is impacted with on daily basis. Encouraged continuation of therapy with focus on grief counseling. Client given emotional support and normalization of grief process. No other changes to treatment plan. 11/06/2024 Other Discussed medication side effects, adverse effects, risks, benefits, as well as interactions. Encouraged non-use of opioids. Has naloxone. Recommended participation in recovery groups and/or counseling services. May contact office with questions or concerns. Patient may self-administ er their own medications or may self-administ er their own oral medications per [facility] Protocol. 12/28/2024 Other Discussed sleep hygiene and caffeine intake with encouragement to limit electronic devices an hour before bed and to limit caffeine after 3:00pm. Exercise benefits for mood and health discussed. Psychoeducation regarding psychiatric illness provided. Client was educated about risks and benefits of medication, alternatives to medication, off label uses of medication, suicidal ideation with SSRIs, self-administrati on and compliance with medication along with how to safely store medication. Verbal informed consent obtained. Client agrees to return sooner if symptoms worsen or if suicidal or homicidal ideations occur. Client has the phone number to the 24-hour crisis line at [facility]. Questions addressed. Client verbalized understanding of all information and is agreeable to treatment plan. 01/05/2025 Other Patient agrees to take medication as prescribed. Discussed medication side effects, adverse effects, risks, benefits, as well as interactions. Encouraged non-use of opioids and other illicit substances. Has naloxone. Discontinuing buprenorphine increases the risk of overdose upon return to illicit opioid use. Use of alcohol or benzodiazepines with buprenorphine increases the risk of overdose and . Education provided about safe storage of medications. Encouraged participation in recovery groups/counseling services. Contact office with questions or concerns. Patient may self-administ er their own medications or may self-administ er their own oral medications per [facility] Protocol. Plan Of Treatment No Information Insurance Providers Payer Name Payer Address Payer Phone Subscriber Number Group Number Insured Name Patient Relationship to Insured Coverage Start Date Coverage End Date [facility] Claims Department [address] [place] [address] [phone] [id number] Naila Harry Self - patient is the insured 0 [employer] Claims Department [address] [place] [address] [phone] [id number] Naila Harry Self - patient is the insured 0 Medical (General) History Medical History History ICD Code OUD [place] Surgical History Surgery Date(Month/Year) Hospitalization History Reason Date(Month/Year) alcohol poisoning 05/2024 [facility] 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
--- OUTSIDE RECORDS SUMMARY | 2025-01-26 14:12 | XMS_ITS | Referral Summary ---
Author Organization [facility] Address [address] [place] [address] Care Team Providers Care Electronic Operator Name Role Phone Prachi Devika Unavailable Unavailable Rubi Rodriguez SOAKER MEAT Primary Care Provider Allergies No known active allergies Medications methadone HCl (METHADONE ORAL) Take 360 mg by mouth daily Active albuterol HFA (PROVENTIL HFA,VENTOLIN HFA,PROAIR HFA) 90 mcg/actuation inhalerIndicati ons:asthma Inhale 2 puffs every 4 (four) hours as needed for wheezing (seasonal allergies). Active omeprazole (PriLOSEC) 20 mg capsule Take 20 mg by mouth daily. Active nicotine (NICODERM CQ) [address] 1 patch on the skin daily. 30 patch 8 Active Additional Information Patient not taking.Reported on 09/28/2022 lidocaine viscous (XYLOCAINE) 2 % solution Take 10 mL by mouth every 3 (three) hours 1 Bottle 9 Active Additional Information Patient not taking.Reported on 09/28/2022 chlorhexidine (PERIDEX) 0.12 % solution Swish 15 mL in mouth for 30 seconds then spit out twice a day after brushing teeth, 473 mL 9 Active Additional Information Patient not taking.Reported on 09/28/2022 folic acid (FOLVITE) 1 mg tabletIndicatio ns:Folate Deficiency Take 1 tablet (1 mg total) by mouth daily 30 tablet 0 Active Additional Information Patient not taking.Reported on 09/28/2022 citalopram (CeleXA) 20 mg tablet Take 20 mg by mouth daily Active cyclobenzaprine (FLEXERIL) 10 mg tablet Take 1 tablet (10 mg total) by mouth 3 (three) times a day as needed for muscle spasms 30 tablet 3 Active Additional Information Patient not taking.Reported on 09/28/2022 hydrOXYzine (VISTARIL) 25 mg capsule Take 1 capsule (25 mg total) by mouth every 4 (four) hours as needed for anxiety 30 capsule 3 Active Additional Information Patient not taking.Reported on 09/28/2022 LORazepam (ATIVAN) 1 mg tablet Take 1 tablet (1 mg total) by mouth every 4 (four) hours as needed for anxiety 12 tablet 3 Active Additional Information Patient not taking.Reported on 09/28/2022 ketorolac (TORADOL) 10 mg tablet Take 1 tablet (10 mg total) by mouth every 4 (four) hours as needed for pain 20 tablet 3 Active Additional Information Patient not taking.Reported on 09/28/2022 vitamin B complex capsule Take 1 capsule by mouth daily Active melatonin 10 mg tablet Active busPIRone (BUSPAR) 15 mg tablet 3 Active buprenorphine-n aloxone (SUBOXONE) 4-1 mg per film 0 3 Active amoxicillin (AMOXIL) 875 mg tabletIndicatio ns:Upper Respiratory/JESSICA NT Infection Take 1 tablet (875 mg total) by mouth 2 (two) times a day 14 tablet 3 Active naproxen (NAPROSYN) 500 mg tablet Take 1 tablet (500 mg total) by mouth 2 (two) times a day with meals 14 tablet 3 Active Active Problems Problem Noted Date Diagnosed Date Alcohol abuse 09/28/2022 Overview (09/28/2022): One bottle of vodka a day. 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 Noted in August 2022 when patient presented with seizure-like episodes likely from polymorphic VT. I recommended use of short term buprenorphine/naloxone which should not cause prolongation of QT interval. Assessment & Plan (09/28/2022 1:18 PM EXPERIMENTAL MECHANIC ELECTRICAL): We discussed the clinical scenario from last month. She has been off methadone since August 2022. Now taking Suboxone. EKG from today showed no more long QT. Severe malnutrition 09/05/2022 Alcohol withdrawal seizure 05/16/2020 Alcohol withdrawal 05/16/2020 Assessment & Plan (05/16/2020 4:39 PM CDT): Seizure occurred prior to arrival, this is her 3rd seizure due to alcohol withdrawal. CIWA protocol ordered. Thiamine, folate, and multivitamin ordered. Warm handoff program consulted. Seizure and fall precautions. Opioid dependence in remission 05/16/2020 Assessment & Plan (05/16/2020 4:40 PM CDT): Continue outpatient methadone dosing of 360 mg daily. GERD (gastroesophageal reflux disease) 0 Assessment & Plan (05/16/2020 4:40 PM CDT): Replace home omeprazole with formulary pantoprazole while inpatient. Asymptomatic bacteriuria 05/16/2020 Assessment & Plan (05/16/2020 4:43 PM CDT): UA on admission showed 4+ leuk esterase, 2+ bacteria, and 6-10 WBCs, but no leukocytosis, fever, or urinary symptoms. It also shows 11-20 epithelial cells moves either represents a contaminated urine sample or asymptomatic bacteriuria, neither of which warrants antibiotic therapy. Polysubstance (including opioids) dependence, da daniel use 02/25/2018 Encephalopathy, toxic 02/25/2018 Transient alteration of awareness History of substance abuse ([facility] Tobacco abuse Assessment & Plan (09/28/2022 12:43 PM EXPERIMENTAL MECHANIC ELECTRICAL): Patient says he still smoking. I advised her to quit as soon as possible and we discussed the risks of smoking with regards to end-organ damage. Assessment & Plan (05/16/2020 4:41 PM CDT): Continue home nicotine patch. Immunizations Immunization Administration Dates Next Due Influenza, Quadrivalent, Spl it, Preservative Free, Intramuscular 05/19/2020 Social History Tobacco Use Types Packs/Day Years Used Date Smoking Tobacco: Every Day Cigarettes 1.5 14 Smokeless Tobacco: Never Tobacco Cessation:Ready to Q uit: Not Asked; Counseling Given: Not Answered Alcohol Use Standard Drinks/Week Comments Not Currently 5 (1 standard drink = 0.6 oz pure alcohol) 3-4 22 oz cans of 4 Loki daily (12% ABV) Social Connection and Isolation Panel [NHANES] A nswer Date Recorded In a typical week, how many times do you talk on the phone with family, friends, or neighbors? Patient declined 09/04/2022 How often do you get togethe r with friends or relatives? Patient declined 09/04/2022 How often do you attend gnosticist or buddhist serv ices? Never 09/04/2022 Do you belong to any clubs o r organizations such as gnosticist groups, unions, fraternal or athletic groups, or school groups? No 09/04/2022 How often do you attend meet ings of the clubs or organizations you belong to? Never 09/04/2022 Marital Status Not on file 09/04/2022 AUDIT-C Answer Date Recorded Q1: How often do you have a drink containing alcohol? 4 or more times a week 08/31/2022 Q2: How many drinks containi ng alcohol do you have on a typical day when you are drinking? 5 or 6 3 Q3: How often do you have si x or more drinks on one occasion? Daily or almost daily 08/31/2022 Overall Financial Resource Strain (CARDIA) Answe r Date Recorded How hard is it for you to pa y for the very basics like food, housing, medical care, and heating? Very hard 09/04/2022 PHQ-2 Answer Date Recorded PHQ-2 Total Score (If total score is 3 or more points, staff should administer the PHQ-9) 4 05/18/2020 Hunger Vital Sign Answer Date Recorded Within the past 12 months, y ou worried that your food would run out before you got the money to buy more. Often true 09/04/19 23 Within the past 12 months, t he food you bought just didn't last and you didn't have money to get more. Often true 09/04/2022 PRAPARE - Transportation Answer Date Re corded In the past 12 months, has l ack of transportation kept you from medical appointments or from getting medications? No 08/22 In the past 12 months, has l ack of transportation kept you from meetings, work, or from getting things needed for daily living? No 09/04/2022 Housing Stability Vital Sign Answer Alexis e Recorded In the last 12 months, was t here a time when you were not able to pay the mortgage or rent on time? Yes 09/04/2022 Number of Places Lived in the Last Year Not on f ile 09/04/2022 In the last 12 months, was t here a time when you did not have a steady place to sleep or slept in a [facility] (including now)? Yes 09/04/2022 Personal Safety Answer Date Recorded Getting School Help Needed Not on file 04/03 Comments No Sex and Gender Information Value Date Recorded Sex Assigned at Not on file Legal Sex Female 3:55 AM EXPERIMENTAL MECHANIC [employer]LECT[employer]ICAL Gender Identity Not on file Sexual Orientation Not on file Last Filed Vital Signs Vital Sign Reading Time Taken Comments Blood Pressure 99/63 04/03/2023 6:18 PM CDT Pulse 78 04/03/2023 6:18 PM CDT Temperature 36.4 C (97.6 F) 04/03/2023 6:18 PM CDT Respiratory Rate 18 04/03/2023 6:18 PM CDT Oxygen Saturation 100% 04/03/2023 6:18 PM CDT Inhaled Oxygen Concentration - - Weight 52.2 kg (115 lb) 04/03/2023 6:18 PM CDT Height 162.6 cm (5' 4) 04/03/2023 6:18 PM CDT Body Mass Index 19.74 04/03/2023 6:18 PM CDT Plan of Treatment Not on file [place] [address] MEDICAID [facility] [address] [facility] [place] [address] [facility] Advance Directives For more information, please contact: [phone] Documents on File Type Date Recorded Patient Liquor Store Manager Expl anation ADVANCE DIRECTIVE 05/16/2020 1:42 PM Jluis taylor of [employer] * Full Code (Latest Code Status on File) Date Activated Date Inactivated Comments 08/31/2022 12:25 AM 09/07/2022 12:40 PM * Full Code Date Activated Date Inactivated Comments 05/16/2020 3:57 PM 05/19/2020 4:04 PM * Full Code Date Activated Date Inactivated Comments 02/25/2018 6:38 AM 02/27/2018 2:38 PM Care Teams Electronic Operator Relationship Specialty Start Date End Date Rubi Rodriguez NP [address] [address] PCP - General Family Medicine 05/23/22 Devika Velarde Advertising Agent Addiction Medicine 07/12/20
--- OUTSIDE RECORDS SUMMARY | 2025-01-26 14:12 | XMS_ITS | Clinical Summary ---
Author Organization [facility] Address [address] [place] [address] Phone Care Team Providers Care Slider Assembler Name Role Phone JenniferRubi phelps [place] CAO, ZARINA Primary Care Provider Allergies Active Allergy Reactions Criticality Noted Date Comments Methadone Palpitations 12/10/2022 Medications METHADONE HCL PO Take by mouth. Activ e meclizine (ANTIVERT) 25 MG Tablet Take 1 Tab by mouth 3 times daily as needed for Dizziness. 30 Tab 0 Active buprenorphine-n aloxone (Suboxone) 8-2 MG FILM 12 Film by Sublingual route 3 times daily. Active busPIRone (BUSPAR) 15 MG Tablet 3 Active ibuprofen (MOTRIN) 800 MG Tablet Take 1 Tablet by mouth every 8 hours. 30 Tablet 3 Active Active Problems Patient Care Coordination No te Formatting of this note migh t be different from the original. -*/ No known active problems Social History Tobacco Use Types Packs/Day Years Used Date Smoking Tobacco: Every Day Cigarettes Smokeless Tobacco: Never Tobacco Cessation:Ready to Q uit: Not Asked; Counseling Given: Not Answered Alcohol Use Standard Drinks/Week Comments Not Currently 0 (1 standard drink = 0.6 oz pur e alcohol) Comments No Sex and Gender Information Value Date Recorded Sex Assigned at Not on file Legal Sex Female 7:07 PM CDT Gender Identity Not on file Sexual Orientation Not on file Last Filed Vital Signs Vital Sign Reading Time Taken Comments Blood Pressure 114/76 05/19/2024 9:30 PM CDT Pulse 85 05/19/2024 9:30 PM CDT Temperature 36.5 C (97.7 F) 05/19/2024 6:45 PM CDT Respiratory Rate 18 05/19/2024 9:30 PM CDT Oxygen Saturation 100% 05/19/2024 9:30 PM CDT Inhaled Oxygen Concentration - - Weight 54.5 kg (120 lb 2.4 oz) 05/19/2024 6:11 P M CDT Height 165.1 cm (5' 5) 05/19/2024 6:11 PM CDT Body Mass Index 19.99 05/19/2024 6:11 PM CDT Plan of Treatment Health Maintenance Due Date Last Done Comments Hepatitis C Virus (HCV) Screening 1992 Pneumococcal Immunization Combined (1 of 2 - PCV) 11/08/2011 Pap Smear 2013 Cervical Cancer Screening (CCS) 2022 HPV/Cotest 2022 SARS-COV-2 Immunization ( season) 2024 04/10/2021, 03/09/2021 Influenza Immunization (#1) 03/22/202504/22, 04/28/2020, 07/08/2015, Additional history exists Respiratory Syncytial Virus (RSV) Immunization (Adult) (1 - 1-dose 75+ series) 11/08/2067 Hepatitis B Immunization Completed 993, 1992, 1992 Human Papillomavirus (HPV) Immunization Completed 09/24/2007, 05/09/2007, 03/04/2007 TdaP Immunization Completed 07/06/2015, 03/04/2007 Meningococcal Immunization (ACWY) Aged Out No longer eligible based on patient's age to complete this topic Rotavirus Immunization Aged Out No lo nger eligible based on patient's age to complete this topic Insurance MEDICAID [employer] [facility] [address] Care Teams Slider Assembler Relationship Specialty Start Date End Date Rubi Rodriguez, GM/SVP [employer] PUBL[employer]ER BUSINESS, CLAIMS VICE PRESIDENT [address] [place] [address] PCP - General Advanced Practice Nurse 12/10/22
--- OUTSIDE RECORDS SUMMARY | 2025-01-26 14:12 | XMS_ITS | Clinical Summary ---
Author Organization [facility] Address [address] [place] [address] Care Team Providers Care Multi Skilled Operator Name Role Phone Prachi, Devika Unavailable Unavailable Rubi Rodriguez NP Primary Care Provider Allergies No known active [...] day. Assessment & Plan (09/28/2022 12:44 PM ABSTRACT MAKER): Patient tells me that she does not [...] interval. Assessment & Plan (09/28/2022 1:18 PM ABSTRACT MAKER): We discussed the clinical scenario from last [...] alteration of awareness History of substance abuse ([facility]) Tobacco abuse Assessment & Plan (09/28/2022 12:43 PM ABSTRACT MAKER): Patient says he still smoking. I advised her to quit as soon as possible and we discussed the risks of smoking with regards to end-organ damage. Assessment & Plan (05/16/2020 4:41 PM CDT): Continue home nicotine patch. Immunizations Immunization Administration Dates Next Due Influenza, Quadrivalent, Spl it, Preservative Free, Intramuscular 05/19/2020 Surgical History Surgery Date Site/Laterality Comments TYMPANOSTOMY TUBE PLACEMENT Medical History Medical History Date Comments Anorexia Alcohol abuse Alcohol withdrawal seizure (HCC) Opiate abuse, episodic (HCC) On methadone therapy Anxiety GERD (gastroesophageal reflux disease) COPD (chronic obstructive pulmonary disease) (HC C) Asthma Family History Medical History Relation Name Comments Alcohol abuse Father Drug abuse Father Cancer Maternal Grandfather Depression Maternal Grandfather Diabetes Maternal Grandfather Hearing loss Maternal Grandfather Hypertension Maternal Grandfather Alcohol abuse Maternal Grandmother Arthritis Maternal Grandmother Diabetes Maternal Grandmother Hypertension Maternal Grandmother Alcohol abuse Mother Depression Mother Diabetes Mother Drug abuse Mother Hypertension Mother Hypothyroidism Mother Relation Name Status Comments Father Maternal Grandfather Maternal Grandmother Mother Social History Tobacco Use Types Packs/Day Years [...] declined 09/04/2022 How often do you attend moravian or zoroastrianism serv ices? Never 09/04/2022 Do you belong to any clubs o r organizations such as moravian groups, unions, fraternal or athletic groups, or [...] when you are drinking? 5 or 6 Q3: How often do you have si [...] place to sleep or slept in a senior care (including now)? Yes 09/04/2022 Personal Safety Answer Date Recorded Getting School Help Needed Not on file 04/03 Comments No Sex and Gender Information Value Date Recorded Sex Assigned at Not on file Legal Sex Female 3:55 AM ABSTRACT MAKER Gender Identity Not on file Sexual Orientation Not on file Obstetrics History Para Term AB IAB SAB Ectopic Multiple Livin g Live Births 2 Date Outcome GA Total Labor Labor/2nd/3rd Weight Sex Type Anes PTL Melanie A1 A5 Name Clin Last Filed Vital Signs Vital Sign Reading [...] 04/03/2023 6:18 PM CDT Plan of Treatment Health Maintenance Due Date Last Done Comments Cervical Cancer Screening 1992 Hepatitis C Screening 1992 Varicella Vaccines (1 of 2 - 13+ 2-dose series) 2005 Regular Well Visit/Exam 18-64 2010 Pneumococcal vaccine <65 (1 of 2 - PCV) 11/08/2011 Depression Screening 05/16/2021 05/16/2020 Influenza Vaccine (Season Ended) 2025 05/19/2020, 04/28/2020, 07/08/2015, Additional history exists DTaP/Tdap/Td Vaccine (8 - Td or Tdap) 07/06/2025 07/06/2015, 03/04/2007, 11/24/1997, Additional history exists Hepatitis B Screening Completed 05/15/1993 , 1992, 1992 HPV Vaccines Completed 09/24/2007, 04/21, 03/04/2007 Insurance [facility] MEDICAID [facility] [address] [place] [address] [facility] . [address] [place] [address] [facility] Advance Directives For more information, please contact: [phone] Documents on File Type Date Recorded Patient Store Mgr Expl anation ADVANCE DIRECTIVE 05/16/2020 1:42 PM Jluis taylor of Professor Of Biochemistry-Medical * Full Code (Latest Code Status on File) Date Activated Date Inactivated Comments 08/31/2022 12:25 AM 09/07/2022 12:40 PM * Full Code Date Activated Date Inactivated Comments 05/16/2020 3:57 PM 05/19/2020 4:04 PM * Full Code Date Activated Date Inactivated Comments 02/25/2018 6:38 AM 02/27/2018 2:38 PM Care Teams Multi Skilled Operator Relationship Specialty Start Date End Date Rubi Rodriguez NP [address] [address] PCP - General Family Medicine 05/23/22 Devika Velarde Associate School Psychologist Addiction Medicine 07/12/20
--- NOTE | 2025-01-26 14:52 | PC.NURSE ---
Patient too weak to stand. Unable to obtain accurate weight.
[2025-01-26 15:55] VITALS: BP 127/97; PULSE 124; RESP 20; O2SAT 100
[2025-01-26 16:10] LABS: Hematocrit 47.4 % (37.0-47.0); Hemoglobin 16.5 g/dL (12.0-15.0); Immature Platelet Fraction Pct 7.8 % (0.9-11.2); Mean Corpuscular HGB Conc 34.8 g/dl (32-36); Mean Corpuscular Hemoglobin 30.8 pg (26-34); Mean Corpuscular Volume 88.4 fl (80-100); Platelet Count Result 131 k/mm3 (150-375); Red Blood Count 5.36 M/mm3 (4.2-5.4); White Blood Count 4.5 K/mm3 (4.5-10.0)
[2025-01-26 16:23] LABS: Alanine Aminotransferase 163 U/L (6-35); Albumin Level 5.2 g/dL (3.5-5.1); Alkaline Phosphatase 56 U/L (38-126); Anion Gap 26 mmol/L (4-12); Aspartate Amino Transferase 106 U/L (14-36); Bilirubin,Total 1.4 mg/dL (0.2-1.3); Blood Urea Nitrogen 11 mg/dL (7-17); Calcium 9.8 mg/dL (8.4-10.2); Carbon Dioxide 16 mmol/L (22-30); Chloride 86 mmol/L (98-107); Estimated CRCL calculation 84 ml/min; Estimated Glomerular Filt Rate > 60; Glucose 187 mg/dL (65-110); Lipase 256 U/L (23-300); Potassium 3.2 mmol/L (3.4-5.0); Sodium 128 mmol/L (137-145); Total Protein 8.3 g/dL (6.3-8.2)
--- NOTE | 2025-01-26 16:27 | ED.GENADULT ---
HPI - General Adult General Chief complaint: Nausea/Vomiting/Diarrhea Stated complaint: N/V, lethargic Time Seen by Provider: 01/26/25 15:51 History of Present Illness HPI narrative: 34-year-old female with prior history of alcohol abuse presenting to the emergency department for evaluation for 1 week persistent alcohol intake. Patient states that she has been drinking 750 mL of liquor a day. Patient states that her from cancer approximately 2 weeks ago and she has been drinking heavily for the past week. Patient arrives to the emergency department very unkind, smelling of urine and does have bruises of various stages on her lower extremities. Patient did denies any homicidal suicidal ideation. Patient reports she does have someone at home to help care for her. Patient states she does have follow-up with Psychiatry Related Data Home Medications ?Medication ?Instructions ?Recorded ?Confirmed ?Last Taken ?Type citalopram 20 mg tablet 20 mg PO DAILY 01/24/21 08/28/21 Unknown History methadone 04/02/21 Unknown History Allergies Allergy/AdvReac Type Severity Reaction Status Date / Time No Known Allergies Allergy Verified 01/26/25 14:11 Review of Systems Review of Systems: All systems reviewed & are unremarkable except as noted in HPI and below PMFSH Past Medical History Medical History Anorexia Anxiety and depression History of kidney problems states that kidney's don't filter good Surgical History Surgical History No pertinent past surgical history Family History Family History Other Hypertension Social History Social History Smoking status: Unknown if ever smoked Alcohol intake: former Substance use: former Last use: 4 years clean on methadone treatment Living arrangements: with family Gender identity (if verbalized by the patient): Female Exam Narrative: APPEARANCE: Unkempt HEAD: normocephalic, atraumatic. EYES: PERRLA/EOMI, conjunctivae clear. NOSE: Normal no drainage EARS:TMS clear with good light reflex. THROAT: Pharynx clear, no exudate. NECK: Supple. No adenopathy, no masses. RESPIRATORY: Airway patent, respirations nonlabored. Clear to auscultation bilaterally, no rales, rhonchi, wheezing. CARDIOVASCULAR: Regular rate and rhythm without murmurs rubs or gallops. ABDOMINAL: Soft, nontender, nondistended, normal bowel sounds MUSCULOSKELETAL: Moves all extremities. Strength/ROM intact, No edema, No calf tenderness. NEURO: Alert. Cranial nerves II through XII intact. Good gait. Good coordination SKIN: Presents to lower extremity PSYCHIATRIC: Normal affect/mood. Course Vital Signs Vital signs: Vital Signs Temperature 97.6 F 01/26/25 14:07 Pulse Rate 134 H 01/26/25 14:07 Respiratory Rate 16 01/26/25 14:07 Blood Pressure 116/88 01/26/25 14:07 Pulse Oximetry 100 01/26/25 14:07 Oxygen Delivery Room Air 01/26/25 14:07 Temperature 98.2 F 01/26/25 17:52 Pulse Rate 107 H 01/26/25 19:58 Respiratory Rate 22 H 01/26/25 19:58 Blood Pressure 113/74 01/26/25 19:58 Pulse Oximetry 98 01/26/25 19:58 Oxygen Delivery Room Air 01/26/25 15:55 Medical Decision Making [facility] Narrative Medical decision making narrative: 34-year-old female presented emergency department for evaluation for multiple days of bingeing alcohol. Patient is alert appropriate at her baseline. Patient is not currently intoxicated. Patient is afebrile with no leukocytosis hemoglobin of 16.5. Patient has platelets of 131. Patient has sodium of 128 and an elevated anion gap. Patient was treated with 2 L of lactated Ringer's and is tolerating p.o.. Urine did have red blood cells but negative for infection. CT head was negative for acute intracranial abnormality. Patient states she prefers to be discharged to home. Patient once again denied having any homicidal suicidal ideation. Patient reports she will have follow-up with psychiatry. Patient was encouraged of close follow-up with her primary care physician. Differential Diagnosis Differential Diagnosis: Suicidal homicidal, alcohol intoxication, alcohol withdrawal, intractable nausea and vomiting Vital Signs Vital Signs: Vital Signs Temperature 97.6 F 01/26/25 14:07 Pulse Rate 134 H 01/26/25 14:07 Respiratory Rate 16 01/26/25 14:07 Blood Pressure 116/88 01/26/25 14:07 Pulse Oximetry 100 01/26/25 14:07 Oxygen Delivery Room Air 01/26/25 14:07 Temperature 98.2 F 01/26/25 17:52 Pulse Rate 107 H 01/26/25 19:58 Respiratory Rate 22 H 01/26/25 19:58 Blood Pressure 113/74 01/26/25 19:58 Pulse Oximetry 98 01/26/25 19:58 Oxygen Delivery Room Air 01/26/25 15:55 Lab Data Lab results reviewed: Yes I reviewed the patient's lab results. 01/26/25 16:02 01/26/25 16:02 Labs: Lab Results 01/26/25 01/26/25 01/26/25 Range/Units 16:02 16:28 16:56 WBC 4.5 (4.5-10.0) K/mm3 RBC 5.36 (4.2-5.4) M/mm3 Hgb 16.5 H (12.0-15.0) g/dL Hct 47.4 H (37.0-47.0) % MCV 88.4 (80-100) fl MCH 30.8 (26-34) pg MCHC 34.8 (32-36) g/dl RDW 12.7 (11.5-14.5) % Plt Count 131 L (150-375) k/mm3 MPV 10.9 H (7.4-10.4) fl Immature Gran % (Auto) Not Reportable Neut % (Auto) Not Reportable Lymph % (Auto) Not Reportable [place] % (Auto) Not Reportable Eos % (Auto) Not Reportable Baso % (Auto) Not Reportable Lymph # (Auto) Not Reportable [place] # (Auto) Not Reportable Eos # (Auto) Not Reportable Baso # (Auto) Not Reportable Abs Immat Gran (auto) Not Reportable Absolute Neuts (auto) Not Reportable Absolute Nucleated RBC Not Reportable Total Counted 50 Neutrophils % (Manual) 4 L (46-73) % Band Neutrophils % 11 H (0-6) % Lymphocytes % (Manual) 21 (18-44) % Monocytes % (Manual) 7 (3-9) % Eosinophils % (Manual) 0 (0-4) % Basophils % (Manual) 0 (0-1) % Metamyelocytes % 7 % Nucleated RBC % Not Reportable Abs Neuts (Manual) 0.67 L (1.3-6.7) K/mm3 Abs Lymphs (Manual) 0.94 L (1.1-4.5) K/mm3 Abs Monocytes (Manual) 0.31 (0.1-0.90) K/mm3 Absolute Eos (Manual) 0.00 L (0.02-0.50) K/mm3 Abs Basophils (Manual) 0.00 (0.0-0.1) K/mm3 Atypical Lymphocytes Present Smudge Cells Few Platelet Estimate Slightly decreased (Adequate) % Immature Plt Fraction 7.8 (0.9-11.2) % Schistocytes None seen Sodium 128 L (137-145) mmol/L Potassium 3.2 L (3.4-5.0) mmol/L Chloride 86 L (98-107) mmol/L Carbon Dioxide 16 L (22-30) mmol/L Anion Gap 26 H (4-12) mmol/L BUN 11 (7-17) mg/dL Creatinine 0.67 L (0.7-1.0) mg/dL Estim Creat Clear Calc 84 ml/min Estimated GFR > 60 (59 - ) Glucose 187 H (65-110) mg/dL Calcium 9.8 (8.4-10.2) mg/dL Total Bilirubin 1.4 H (0.2-1.3) mg/dL AST 106 H (14-36) U/L ALT 163 H (6-35) U/L Alkaline Phosphatase 56 (38-126) U/L Total Protein 8.3 H (6.3-8.2) g/dL Albumin 5.2 H (3.5-5.1) g/dL Lipase 256 (23-300) U/L Urine Color Dark yellow (Yellow) Urine Appearance Cloudy H (Clear) Urine pH 6.5 (5.0-9.0) Ur Specific [place] 1.034 (1.001-1.035) Urine Protein 4+ H (Negative) mg/dL Urine Glucose (UA) Trace H (Negative) mg/dL Urine Ketones 4+ H (Negative) mg/dL Ur Blood (Man) 2+ H (Negative) Urine Nitrate Negative (Negative) Urine Bilirubin 2+ H (Negative) Urine Urobilinogen 1.0 (<2.0) mg/dL Add Ur Microanalysis Reviewed Leukocyte Esterase Rfl Trace H (Negative) ELINA/UL Urine RBC 21-50 H (0-2) /hpf Urine WBC 0-5 (0-3) /hpf Ur Squamous Epith Cells Few (Few) /hpf Urine Bacteria Rare /hpf Urine Casts >20 Hyaline Casts Present (None) /lpf Urine Yeast (Budding) Present H (None) /hpf POC Urine HCG, Qual Negative (Negative) Ethyl Alcohol < 10 (<10) mg/dL Imaging Data Radiologist's impression: Impressions Head CT 01/26/25 17:24 IMPRESSION: No acute intracranial findings. Discharge Plan Discharge Clinical Impression: Alcohol abuse Patient Disposition: Home Condition: Stable Instructions: Antibiotic Form, Abuse of Alcohol (DC), Acute Nausea and Vomiting (ED) Additional Instructions: Avoid alcohol. Zofran as needed for nausea control. Clear liquid diet for the next 1-3 days. If you have any worsening symptoms then please call or return to the emergency department. Patient Language: Telugu Prescriptions: New ondansetron 4 mg tablet,disintegrating 4 mg PO Q8H PRN (Reason: nausea and vomiting) Qty: 14 0RF No Action citalopram 20 mg Tablet 20 mg PO DAILY methadone Follow-up/Referrals: PHYSICIAN,AUTOMOTIVE PARTS SALESPERSON [Primary Care Provider] -
[2025-01-26] MEDS: LACTATED RINGERS 2,000 ML 999 ML IV CONT (16:29)
--- OUTSIDE RECORDS SUMMARY | 2025-01-26 16:39 | XMS_ITS | Clinical Summary ---
Author Organization [facility] Address [address] [place] [address] Care Team Providers Care Assistant Production Editor Name Role Phone Prachi, Devika Unavailable Unavailable [...] day. Assessment & Plan (09/28/2022 12:44 PM RN IMAGING): Patient tells me that she does not [...] interval. Assessment & Plan (09/28/2022 1:18 PM RN IMAGING): We discussed the clinical scenario from last [...] alteration of awareness History of substance abuse ([facility]) Tobacco abuse Assessment & Plan (09/28/2022 12:43 PM RN IMAGING): Patient says he still smoking. I advised [...] declined 09/04/2022 How often do you attend quaker or confucianist serv ices? Never 09/04/2022 Do you belong to any clubs o r organizations such as quaker groups, unions, fraternal or athletic groups, or [...] to sleep or slept in a senior living (including now)? Yes 09/04/2022 Personal Safety Answer Date Recorded Getting School Help Needed Not on file 04/03 Comments No Sex and Gender Information Value Date Recorded Sex Assigned at Not on file Legal Sex Female 3:55 AM RN IMAGING Gender Identity Not on file Sexual Orientation [...] HPV Vaccines Completed 09/24/2007, 04/21, 03/04/2007 Insurance [facility] [place] [address] [facility] . [address] [place] [address] [facility] . [address] [place] [address] [facility] Advance Directives For more information, please contact: [phone] Documents on File Type Date Recorded Patient Ornamental Machine Operator Expl anation ADVANCE DIRECTIVE 05/16/2020 1:42 PM Jluis taylor of Detective Private Eye-Medical * Full Code (Latest Code Status on File) Date Activated Date Inactivated Comments 08/31/2022 12:25 AM 09/07/2022 12:40 PM * Full Code Date Activated Date Inactivated Comments 05/16/2020 3:57 PM 05/19/2020 4:04 PM * Full Code Date Activated Date Inactivated Comments 02/25/2018 6:38 AM 02/27/2018 2:38 PM Care Teams Assistant Production Editor Relationship Specialty Start Date End Date Rubi Rodriguez NP [address] [address] PCP - General Family Medicine 05/23/22 Devika Velarde Poultry Breeder Addiction Medicine 07/12/20
--- OUTSIDE RECORDS SUMMARY | 2025-01-26 16:39 | XMS_ITS | Referral Summary ---
Author Organization [facility] Address [address] [place] [address] Care Team Providers Care Director Of Vital Statistics Name Role Phone Prachi Devika Unavailable Unavailable Rubi Rodriguez BUT[employer] Primary Care Provider Allergies No known active [...] day. Assessment & Plan (09/28/2022 12:44 PM POWER SAW MECHANIC): Patient tells me that she does not [...] interval. Assessment & Plan (09/28/2022 1:18 PM POWER SAW MECHANIC): We discussed the clinical scenario from last [...] alteration of awareness History of substance abuse ([facility]) Tobacco abuse Assessment & Plan (09/28/2022 12:43 PM POWER SAW MECHANIC): Patient says he still smoking. I advised [...] declined 09/04/2022 How often do you attend mormon or lutheran serv ices? Never 09/04/2022 Do you belong to any clubs o r organizations such as mormon groups, unions, fraternal or athletic groups, or [...] place to sleep or slept in a care home (including now)? Yes 09/04/2022 Personal Safety Answer Date Recorded Getting School Help Needed Not on file 04/03 Comments No Sex and Gender Information Value Date Recorded Sex Assigned at Not on file Legal Sex Female 3:55 AM POWER SAW MECHANIC Gender Identity Not on file Sexual Orientation [...] Plan of Treatment Not on file [place] [address] [place] [address] MEDICAID [facility] [place] [facility] [place] [address] [facility] Advance Directives For more information, please contact: [phone] Documents on File Type Date Recorded Patient Trim Installer Expl anation ADVANCE DIRECTIVE 05/16/2020 1:42 PM Jluis taylor of Train Brakeman-Medical * Full Code (Latest Code Status on File) Date Activated Date Inactivated Comments 08/31/2022 12:25 AM 09/07/2022 12:40 PM * Full Code Date Activated Date Inactivated Comments 05/16/2020 3:57 PM 05/19/2020 4:04 PM * Full Code Date Activated Date Inactivated Comments 02/25/2018 6:38 AM 02/27/2018 2:38 PM Care Teams Director Of Vital Statistics Relationship Specialty Start Date End Date Rubi Rodriguez NP [address] [address] PCP - General Family Medicine 05/23/22 Devika Velarde Director Equipment Addiction Medicine 07/12/20
--- OUTSIDE RECORDS SUMMARY | 2025-01-26 16:39 | XMS_ITS | Clinical Summary ---
Author Organization [facility] Address [address] [place] [address] Phone Care Team Providers Care Avionics Installer Name Role Phone JenniferRubi phelps [place] CAO, [...] this topic Insurance MEDICAID [employer] [facility] [id number] [address] Care Teams Avionics Installer Relationship Specialty Start Date End Date Rubi Rodriguez, TRANSPLANT CASE MANAGER, LABORATORY GENETICIST [address] [place] [address] PCP - General Advanced Practice Nurse 12/10/22
[2025-01-26 16:57] LABS: BEDSIDEPREGUCG Negative (Negative)
[2025-01-26 17:02] VITALS: BP 113/83; PULSE 77
[2025-01-26 17:03] VITALS: BP 112/93; PULSE 118
--- NOTE | 2025-01-26 17:04 | PC.NURSE ---
pt refused to stand for last orthostat.
[2025-01-26 17:41] LABS: Band Neutrophils Percent 11 % (0-6); Basophils Absolute Manual 0.00 K/mm3 (0.0-0.1); Basophils Percent Manual 0 % (0-1); Eosinophils Absolute Manual 0.00 K/mm3 (0.02-0.50); Eosinophils Percent Manual 0 % (0-4); Lymphocytes Absolute Manual 0.94 K/mm3 (1.1-4.5); Lymphocytes Percent Manual 21 % (18-44); Monocytes Absolute Manual 0.31 K/mm3 (0.1-0.90); Monocytes Percent Manual 7 % (3-9); Neutrophils Absolute Manual 0.67 K/mm3 (1.3-6.7); Neutrophils Percent Manual 4 % (46-73); Total Cells Counted 50
[2025-01-26 17:42] LABS: Metamyelocytes Percent 7 %
[2025-01-26 17:43] LABS: Schistocytes None Seen
[2025-01-26 17:47] LABS: Smudge Cells FEW
[2025-01-26 17:52] VITALS: BP 112/81; PULSE 102; RESP 18; TEMP 36.8; O2SAT 100
[2025-01-26 17:53] LABS: Add Urine Microscopic? YES; Appearance Urine Cloudy (Clear); Budding Yeast Urine Present /hpf; Glucose Urine UA Trace mg/dL (Negative); Leukocyte Esterase Ur Trace LEU/UL (Negative); Need Manual Microscopic Reviewed; Nitrate Urine Negative (Negative); Non Pathogenic Casts >20; Specific Grav Ur 1.034 (1.001-1.035)
[2025-01-26] MEDS: METOCLOPRAMIDE HCL INJ 10 MG/2 ML VIAL IV PUSH (18:22)
[2025-01-26] MEDS: LORazepam INJ (*CRX) 2 MG/ML VIAL 1 MG IV PUSH (18:40)
[2025-01-26] MEDS: KETOROLAC 15 MG/ML VIAL (*BKC) IV PUSH (18:40)
[2025-01-26 19:58] VITALS: BP 113/74; PULSE 107; RESP 22; O2SAT 98
== END 2025-01-26 19:59 | disposition home or self-care (01) ==
PROVIDERS: Emergency Provider Emergency Medicine
DX: F10.10 Alcohol abuse, uncomplicated (principal); Y90.0 Blood alcohol level of less than 20 mg/100 ml; F41.9 Anxiety disorder, unspecified; F32.A Depression, unspecified
CPT/HCPCS: 36415; 70450; 80053; 81001; 81025; 82077; 83690; 85025; 85055; 96361; 96374; 96375; 99284; J1885; J2060; J2765; J7120

== ENCOUNTER 2025-02-26 09:22 | Emergency (ER) | payer OTHER, SELFPAY ==
[2025-02-26 09:22] VITALS: BP 129/92; PULSE 101; RESP 20; TEMP 36.6; O2SAT 95
[2025-02-26 09:57] LABS: Hematocrit 41.1 % (37.0-47.0); Hemoglobin 13.8 g/dL (12.0-15.0); Immature Granulocyte Percent A 0.3 % (0-0.5); Lymphocytes Absolute Auto 1.78 K/mm3 (0.9-3.2); Mean Corpuscular HGB Conc 33.6 g/dl (32-36); Mean Corpuscular Hemoglobin 30.8 pg (26-34); Mean Corpuscular Volume 91.7 fl (80-100); Nucleated Red Blood Cells Absolute Auto 0.000 K/mm3 (0.0-0.012); Nucleated Red Blood Cells Perc 0.0 % (0.0-0.2); Platelet Count Result 242 k/mm3 (150-375); Red Blood Count 4.48 M/mm3 (4.2-5.4); White Blood Count 16.5 K/mm3 (4.5-10.0)
--- OUTSIDE RECORDS SUMMARY | 2025-02-26 09:57 | XMS_ITS | Clinical Summary ---
Author Organization [facility] Address [address] [place] [address] Care Team Providers Care Deputy Harbormaster Name Role Phone Prachi, Devika Unavailable Unavailable Rubi Rodriguez NP Primary Care Provider [phone] Allergies No known active allergies Medications methadone [...] day. Assessment & Plan (09/28/2022 12:44 PM KNITTER HAND): Patient tells me that she does not [...] interval. Assessment & Plan (09/28/2022 1:18 PM KNITTER HAND): We discussed the clinical scenario from last [...] alteration of awareness History of substance abuse ([facility]) Tobacco abuse Assessment & Plan (09/28/2022 12:43 PM KNITTER HAND): Patient says he still smoking. I advised [...] reflux disease) COPD (chronic obstructive pulmonary disease) Asthma Family History Medical History Relation Name [...] declined 09/04/2022 How often do you attend holiness or adventism serv ices? Never 09/04/2022 Do you belong to any clubs o r organizations such as holiness groups, unions, fraternal or athletic groups, or [...] place to sleep or slept in a chcf (including now)? Yes 09/04/2022 Personal Safety Answer Date Recorded Getting School Help Needed Not on file 04/03 Comments No Sex and Gender Information Value Date Recorded Sex Assigned at Not on file Legal Sex Female 3:55 AM KNITTER HAND Gender Identity Not on file Sexual Orientation [...] 11/08/2011 Depression Screening 05/16/2021 05/16/2020 Influenza Vaccine (#1) 2025 , 04/28/2020, 07/08/2015, Additional history exists DTaP/Tdap/Td Vaccine (8 - Td or Tdap) 07/06/2025 07/06/2015, 03/04/2007, 11/24/1997, Additional history exists Hepatitis B Screening Completed 05/15/1993 , 1992, 1992 HPV Vaccines Completed 09/24/2007, 04/21, 03/04/2007 Insurance [facility] MEDICAID [facility] . [address] [place] [address] [facility] . [address] [place] [address] [facility] Advance Directives For more information, please contact: [phone] Documents on File Type Date Recorded Patient Information Systems Specialist Expl anation ADVANCE DIRECTIVE 05/16/2020 1:42 PM Jluis taylor of Roving Technician-Medical * Full Code (Latest Code Status on File) Date Activated Date Inactivated Comments 08/31/2022 12:25 AM 09/07/2022 12:40 PM * Full Code Date Activated Date Inactivated Comments 05/16/2020 3:57 PM 05/19/2020 4:04 PM * Full Code Date Activated Date Inactivated Comments 02/25/2018 6:38 AM 02/27/2018 2:38 PM Care Teams Deputy Harbormaster Relationship Specialty Start Date End Date Rubi Rodriguez NP [address] [address] PCP - General Family Medicine 05/23/22 Devika Velarde Gaming Cage Worker Addiction Medicine 07/12/20
--- OUTSIDE RECORDS SUMMARY | 2025-02-26 09:57 | XMS_ITS | Clinical Summary ---
Author Organization [facility] Address [address] [place] [address] Phone Care Team Providers Care Sheet Rock Applier Name Role Phone JenniferRubi phelps [place] CAO, [...] this topic Insurance MEDICAID [facility] [employer] [id number] Care Teams Sheet Rock Applier Relationship Specialty Start Date End Date Rubi Rodriguez, BAILIFF, SONOGRAM TECHNICIAN [address] [place] [address] PCP - General Advanced Practice Nurse 12/10/22
--- OUTSIDE RECORDS SUMMARY | 2025-02-26 09:57 | XMS_ITS | Patient Health Record ---
Author Organization [facility] Address [address] [place] [address] Care Team Providers Care Service Assistant Name Role Phone Rajat Dashawn Primary Care Provider Solitario Smith Unavailable [phone] Ana Gallo Unavailable [phone] Jerome Montez Unavailable [phone] Elly Landis Unavailable [phone] Marjorie Garza Unavailable [phone] Gisella Rivera Unavailable [phone] Allergies No Known Allergies Results Component Value Reference Range Notes Urinalysis In-House, Routine Reviewed date:07/23/2024 01:31:49 PM Interpretation: Performing Lab: Notes/Report: Urine-Color clear Appearance yadi Leukocytes neg Nitrite, Urine pos Urobilinogen,Semi-Qn 0.2 Protein neg pH 5.5 Occult Blood mod Specific [place] 1.030 Ketones neg Bilirubin neg Glucose neg 14 Panel Urine Drug Screen Reviewed date:02/18/2025 01:58:52 PM Interpretation: Performing Lab: Notes/Report: THC POS [...] POS 12 Panel Urine Drug Screen Reviewed date:11/06/2024 [...] neg BUP POS TCA neg FTY neg 14 Panel Urine Drug Screen Reviewed date:01/05/2025 01:50:29 PM Interpretation: Performing Lab: Notes/Report: THC POS LINDA neg MOP (OPI) POS AMP neg MET neg BAR neg BZO POS MDMA neg MTD neg OXY neg PCP neg BUP POS TCA neg FTY neg 12 Panel Urine Drug Screen Reviewed date:03/30/2024 [...] Urine Reviewed date:01/12/2025 09:37:38 AM Interpretation: Performing Lab:[facility], [address] [facility], Phone - [phone], Director - Audra Notes/Report: Creatinine 33 >=20 mg/dL REFERENCE RANGE [...] Urine Reviewed date:03/16/2024 09:14:04 AM Interpretation: Performing Lab:[facility], [address] [place] [address], Phone - [phone], Director - [facility] Notes/Report: Creatinine 73 Testing Threshold: buprenorphine, 1.0 ng/mL norbuprenorphine, 5.0 ng/mL naloxone, 10 ng/mL This test was developed and its performance characteristics determined by [facility]. It has not been cleared or approved by the Food and Drug Administration. REFERENCE RANGE: Ref Range>=20 BUPRENORPHINE ++POSITIVE++ Buprenorphine 170 Norbuprenorphine 556 N/B Ratio 3.27 >=0.3 OPIATE ANTAGONIST ++POSITIVE++ Naloxone 533 12 Panel Urine Drug Screen Reviewed date:08/27/2024 08:45:33 AM Interpretation: Performing Lab: Notes/Report: THC pos LINDA neg MOP (OPI) neg AMP neg MET neg BAR neg BZO pos MDMA neg MTD neg OXY neg PCP neg BUP pos 12 Panel Urine Drug Screen Reviewed date:06/16/2024 02:33:42 PM Interpretation: Performing Lab: Notes/Report: THC POS LINDA neg MOP (OPI) neg AMP neg MET neg BAR neg BZO POS MDMA neg MTD neg OXY neg PCP neg BUP POS Reason For Referral Reason Counseling (brief or long-term), significant other has terminal illness Diagnosis 1 Opioid use disorder (F11.99) Referral Organization [facility] Referring Provider First Name Gisella Referring Provider Last Name Miguel Referring Provider Speciality Psychiatry Referred Provider Specialty [facility] Clinical Notes Adelina Acosta 024 11:21:37 AM > HN contacted client regarding referral for starting therapy with [place]. HN provided client with process of calling central access for same day scheduling. Client was agreeable with the referral and stated no other needs at this time. Referral Priority Routine Reason Therapy = Client anish cheek benefit from immediate short term time limited therapy. She was able to get into therapy at [facility] in mid-July but is suffering with extreme anxiety/depression r/t BF's terminal illness. Diagnosis 1 Bipolar 1 disorder, depressed (F31.9) Diagnosis 2 Anxiety disorder, un specified (F41.9) Diagnosis 3 Insomnia, unspecifie d type (G47.00) Referral Organization [facility] Referring Provider First Name Jerome Referring Provider Last Name Tc Referring Provider Speciality Psychiatry Referred Provider Specialty Behavioral [facility] Clinical Notes Jenny Lino 02:36:07 PM > states has therapist at [facility] Referral Priority Routine Medications Medication SIG (Take, Route, Frequency, Duration) Notes Start Date End Date Status Buprenorphine HCl-Naloxone HCl 8-2 MG 1 film under the tongue and allow to dissolve Sublingual three times daily; Duration: 30 days 02/18/2025 Active Buprenorphine HCl-Naloxone HCl 4-1 MG 1 film under the tongue and allow to dissolve Sublingual three times daily; Duration: 30 days 02/18/2025 Active OLANZapine 15 MG 1 tablet at bedtime Orally Once a day; Duration: 30 days . 05/28/2024 Active FLUoxetine HCl 40 MG 1 capsule Orally On ce a day; Duration: 30 days . 05/28/2024 Active buPROPion HCl ER (XL) 300 MG TAKE 1 TABLET BY MOUTH EVERY MORNING; Duration: 30 days Active OLANZapine 5 MG 0.5 - 1 tablet Orally Once a day; Duration: 30 days As needed for severe anxiety . 06/10/2024 Active FLUoxetine HCl 20 MG 1 capsule (take wit h 40 mg capsule for 60 mg daily total) Orally Once a day; Duration: 30 days . 08/03/2024 Active Vitamin B1 100 MG 1 tablet Once a day Active hydrOXYzine HCl 25 MG 1-2 tablet as need ed Orally at bedtime; Duration: 30 days 12/17/2023 Active LORazepam 1 MG 1 tablet Once a day; Duration: 30 days As needed for extreme anxiety or panic attack . 12/28/2024 Active Folic Acid 1 MG 1 tablet Once a day Active traZODone HCl 100 MG 2 tablets at bedtim e Orally Once a day; Duration: 30 days . 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 Stress is when someone feels tense, nervous, anxious, or can\t sleep at night because their mind is troubled Somewhat In the past year have you sp ent more than 2 nights in a row in a fdc, skilled nursing, care home center, or juvenile correctional facility? No Are you a refugee? No What country are you from? [place] Do you feel physically and e [...] W/U Status Risk Notes Problem Anxiety disorder (644055049) Anxiety disorder, unspecified (F41.9) Active confirmed Problem Psychoactive substance dependence (0080389) Chemical dependency (F19.20) Active confirmed Problem Anxiety (22981853) Situational anxiety (F41.8) Active confirmed Problem Bipolar disorder (01480836) Bipolar 1 disorder, depressed (F31.9) Active confirmed Problem Insomnia (295864513) Insomnia, unspecified type (G47.00) Active confirmed Problem Reactive depression (situational) (68963267) Situational depression (F43.21) Active confirmed Problem Opioid use disorder (4525908819) Opioid use disorder (F11.99) Active confirmed Problem Tobacco user (066757045) Nicotine dependence with current use (F17.200) Active confirmed Problem Mental disorder caused by drug (646093069) Opioid use with opioid-induced disorder (F11.99) Active confirmed Vital Signs Heart Rate 70 /min 02/18/2025 Temperature 98.0 degrees Fahrenheit 11/06/2024 Respiratory Rate 16 /min 02/18/2025 Oximetry 95 % 02/18/2025 Blood pressure diastolic 78 mm Hg 02/18/2025 Height 64 in 02/18/2025 Blood pressure systolic 120 mm Hg 02/18/2025 Weight 125.8 lbs 02/18/2025 BMI 21.59 kg/m2 02/18/2025 Encounters Encounter Location Date Provider Diagnosis [address] [address] 03/11/2024 Gisella Rivera Opioid use disorder F11.[address] [place] [address] 03/11/2024 Ana Gallo [address] [address] 03/30/2024 Gisella Rivera Opioid use disorder F11.99 and Nicotine dependence, unspecified, uncomplicated F17.[address] [place] [address] 05/12/2024 Gisella Rivera Opioid use disorder F11.99 and Nicotine dependence, unspecified, uncomplicated F17.[address] [place] [address] [address] 05/22/2024 Dashawn Earl Opioid use with opioid-induced disorder F11.99 ; Anxiety disorder, unspecified F41.9 ; Depression, unspecified F32.A ; Insomnia, unspecified type G47.00 and Nicotine dependence, unspecified, uncomplicated F17.[address] [address] 05/28/2024 Jerome Montez Nicotine dependence, unspecified, uncomplicated F17.200 ; Bipolar 1 disorder, depressed F31.9 and Anxiety disorder, unspecified F41.[address] [address] 06/10/2024 Jerome Montez Bipolar 1 disorder, depressed F31.9 ; Anxiety disorder, unspecified F41.9 and Insomnia, unspecified type G47.[address] [address] 06/16/2024 Gisella Rivera Opioid use disorder F11.99 and Nicotine dependence, unspecified, uncomplicated F17.[address] [address] 06/30/2024 Jerome Montez Bipolar 1 disorder, depressed F31.9 ; Insomnia, unspecified type G47.00 and Anxiety disorder, unspecified F41.[address] [address] 07/23/2024 Dashawn Earl Urinary symptom or sign R39.9 ; Opioid use disorder F11.99 and Nicotine dependence, unspecified, uncomplicated F17.[address] [address] 08/03/2024 Jerome Montez Bipolar 1 disorder, depressed F31.9 ; Insomnia, unspecified type G47.00 and Anxiety disorder, unspecified F41.[address] [address] 08/27/2024 Dashawn Earl Opioid use disorder F11.99 and Nicotine dependence, unspecified, uncomplicated F17.[address] [address] 09/07/2024 Jerome Montez Bipolar 1 disorder, depressed F31.9 ; Anxiety disorder, unspecified F41.9 and Insomnia, unspecified type G47.[address] [address] 11/06/2024 Daisyshantell Bojorqueznathaly Opioid use with opioid-induced disorder F11.99 and Nicotine dependence with current use F17.[address] [place] [address] 12/25/2024 Ellymeg Andinoan Opioid use with opioid-induced disorder F11.99 and Nicotine dependence with current use F17.[address] [address] 12/28/2024 Jerome Montez Bipolar 1 disorder, depressed F31.9 ; Anxiety disorder, unspecified F41.9 and Insomnia, unspecified type G47.[address] [place] [address] 01/05/2025 Gisella Szlufik Opioid use with opioid-induced disorder F11.[address] [address] 02/18/2025 Gisella Szlufik Opioid use with opioid-induced disorder F11.[address] [address] 06/08/2024 Jerome Montez [address] [address] 06/26/2024 Jerome Montez [address] [place] [address] 07/01/2024 Jerome Montez [address] [address] 07/02/2024 Jerome Montez Bipolar 1 disorder, depressed F31.[address] [place] [address] 07/29/2024 Jeorme Montez [address] [place] [address] 12/11/2024 Jerome Montez Bipolar 1 disorder, depressed F31.9 ; Anxiety disorder, unspecified F41.9 and Insomnia, unspecified type G47.[address] [place] [address] 01/01/2025 Marjorie Garza [address] [address] 02/10/2025 Gisella Rivera Opioid use with opioid-induced disorder F11.99 Assessments Encounter Date Diagnosis (ICD Code) Assessment Notes Treatment Notes Treatment Clinical Notes Section Notes 03/11/2024 Opioid use disorder (ICD-10 - F11.99) [...] 1 disorder, depressed (ICD-10 - F31.9) Client agreeable to starting olanzapine/fluox etine combination to treat high levels of anxiety/depressi on that appears to also have basis in bipolar 1 when carefully screened. Client with high level of stressors currently as BF dx with rare form of cancer and has not been doing well. 06/10/2024 Bipolar 1 disorder, depressed (ICD-10 - F31.9) Client agreeable to increase in olanzapine and [...] client till mid July appt at [facility]. Client is agreeable to these treatment plan [...] (ICD-10 - F11.99) Encouraged positive coping mechanisms 02/10/2025 Opioid use with opioid-induced disorder (ICD-10 - F11.99) 02/18/2025 Opioid use with opioid-induced disorder (ICD-10 - F11.99) 12/25/2024 Nicotine dependence with current use (ICD-10 [...] short term therapy to bridge client till july appt at [facility]. Client is agreeable to these treatment plan changes. 06/10/2024 Anxiety disorder, unspecified (ICD-10 - F41.9) Client agreeable to increase in olanzapine and fluoxetine to aide with anxiety and depression and trazodone to aide with insomnia. Ativan refilled for use as rescue medication for panic attacks and to be used as secondary medication only. 05/28/2024 Anxiety disorder, unspecified (ICD-10 - F41.9) Client agreeable to starting olanzapine/fluox etine combination to treat high levels of anxiety/depressi on that appears to also have basis in bipolar 1 when carefully screened. Client with high level of stressors currently as BF dx with rare form of cancer and has not been doing well. 05/22/2024 Depression, unspecified (ICD-10 - F32.A) 05/22/2024 Insomnia, unspecified type (ICD-10 - G47.00) 06/30/2024 Anxiety disorder, unspecified (ICD-10 - F41.9) Increase to trazodone and olanzapine at night ordered and olanzapine changed to disintegrating to help with sleep initiation. Referral placed for request for immediate short term therapy to bridge client till july appt at [facility]. Client is agreeable to these treatment plan changes. 06/10/2024 Insomnia, unspecified type (ICD-10 - G47.00) Client agreeable to increase in olanzapine and fluoxetine to aide with anxiety and depression and trazodone to aide with insomnia. Ativan refilled for use as rescue medication for panic attacks and to be used as secondary medication only. 08/03/2024 Anxiety disorder, unspecified (ICD-10 - F41.9) [...] Nicotine dependence, unspecified, uncomplicated (ICD-10 - F17.200) 03/11/2024 Other Client agrees to take medication [...] number to the 24-hour crisis line at [facility]. Questions addressed. Client verbalized understanding of all [...] number to the 24-hour crisis line at [facility]. Questions addressed. Client verbalized understanding of all [...] number to the 24-hour crisis line at [facility]. Questions addressed. Client verbalized understanding of all information and is agreeable to treatment plan. Increase to trazodone and olanzapine at night ordered and olanzapine changed to disintegrating to help with sleep initiation. Referral placed for request for immediate short term therapy to bridge client till mid July appt at [facility]. Client is agreeable to these treatment plan [...] number to the 24-hour crisis line at [facility]. Questions addressed. Client verbalized understanding of all [...] number to the 24-hour crisis line at [facility]. Questions addressed. Client verbalized understanding of all [...] self-administ er their own oral medications per [place] Protocol. 12/28/2024 Other Discussed sleep hygiene and [...] number to the 24-hour crisis line at [facility]. Questions addressed. Client verbalized understanding of all [...] self-administ er their own oral medications per [place] Protocol. 02/18/2025 Other Offered counseling referral, patient declines at this time. Provided information for Therapy Call-In Hours. Patient agrees to take medication as prescribed. [...] self-administ er their own oral medications per [facility] Protocol. Plan Of Treatment No Information Insurance Providers Payer Name Payer Address Payer Phone Subscriber Number Group Number Insured Name Patient Relationship to Insured Coverage Start Date Coverage End Date [employer] [facility] Attn Claims Department [address] [place] [address] [phone] [id number] Naila Harry Self - patient is the insured 0 [employer] Attn Claims Department [address] [place] [address] [phone] [id number] Naila Harry Self - patient is the insured 0 Medical (General) History Medical History History ICD Code OUD Torsades Surgical History Surgery Date(Month/Year) Hospitalization History Reason Date(Month/Year) alcohol poisoning 05/2024 [facility] 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
--- NOTE | 2025-02-26 09:58 | ED_ITS ---
HPI - Nausea/Vomiting/Diarrhea General Chief complaint: Nausea/Vomiting/Diarrhea Stated complaint: HEMOPTYSIS Time Seen by Provider: 02/26/25 09:25 Source: patient and RN notes reviewed Mode of arrival: ambulatory Limitations: no limitations History of Present Illness HPI Narrative: 34-year-old female presents to the ER via EMS complaining of nausea, vomiting since last night. Patient reports mild abdominal discomfort, denies any diarrhea or black or tarry stools. Patient said she has been vomiting so much that she started notice red streaks of blood in her vomit. Patient denies any coffee-ground emesis or gross red blood in her vomit. Patient has a history of alcohol abuse and opiate use. Patient last drink alcohol 1 week ago. Patient also states she has not use any other drugs and takes Suboxone for opiate addiction. Patient unable take her Suboxone because she says she has to nauseous. Patient denies any fevers, chest pain, breathing problems, or any other symptoms. Patient last vomited few hours ago. Related Data Home Medications ?Medication ?Instructions ?Recorded ?Confirmed ?Last Taken ?Type citalopram 20 mg tablet 20 mg PO DAILY 01/24/21 08/28/21 Unknown History methadone 04/02/21 Unknown History Allergies Allergy/AdvReac Type Severity Reaction Status Date / Time No Known Allergies Allergy Verified 01/26/25 14:11 Review of Systems 2 Review of Systems: CONSTITUTIONAL: Denies fever, chills, or sweats. EYES: Denies visual changes, redness, or discharge. ENT: Denies rhinorrhea, congestion, sore throat, or otalgia. CARDIOVASCULAR: Denies chest pain, palpitations, or edema. RESPIRATORY: Denies cough or dyspnea. GASTROINTESTINAL: Denies abdominal pain, hematochezia, black tarry stools, coffee-ground emesis, or diarrhea. Positive for nausea vomiting. GENITOURINARY: Denies dysuria or hematuria. SKIN: Denies rash or itching. MUSCULOSKELETAL: Denies back pain, joint pain, or myalgia. NEUROLOGIC: Denies headache, numbness, or weakness. PSYCHIATRIC: Denies anxiety or depression. All other systems reviewed are negative, except as documented in HPI. [facility] Past Medical History Medical History Anorexia History of kidney problems states that kidney's don't filter good Anxiety and depression Surgical History Surgical History No pertinent past surgical history Family History Family History Other Hypertension Social History Social History Smoking status: Unknown if ever smoked Alcohol intake: former Substance use: former Last use: 4 years clean on methadone treatment Living arrangements: with family Gender identity (if verbalized by the patient): Female Comments At the time of my signature, I reviewed and agree with the nursing past medical, surgical, social, and family history. There is no relevant family history pertinent to the patient complaint. Exam 2 Narrative: GENERAL: This is a well-nourished, well-developed adult, in no apparent distress. They are non ill-appearing, nontoxic appearing. HEAD: normocephalic, atraumatic. EYES: Sclera clear/white. Conjunctiva normal. Vision is grossly intact. Extraocular movements intact EARS: External ears normal, Hearing grossly intact. NOSE: External nose normal THROAT: Mucous membranes moist, NECK: Neck supple, CARDIOVASCULAR: Regular rate and rhythm without murmurs, gallops, or rubs. RESPIRATORY: Clear to auscultation. Breath sounds equal bilaterally. No wheezes, rales, or rhonchi. GASTROINTESTINAL: Abdomen soft, non-tender, nondistended. Bowel sounds are active. No hepato-splenomegaly, or palpable masses. No guarding. SKIN: warm, Dry, intact with no suspicious lesions or rash, good texture and turgor. NEURO: awake, alert, and oriented to person, place and time. There were no obvious focal neurologic abnormalities. EXTREMITIES: No joint tenderness, effusion, or edema noted. Course Course Emergency Course: Portions of this record may have been created with voice recognition software Vital Signs Vital signs: Vital Signs Temperature 97.9 F 02/26/25 09:22 Pulse Rate 101 H 02/26/25 09:22 Respiratory Rate 20 02/26/25 09:22 Blood Pressure 129/92 H 02/26/25 09:22 Pulse Oximetry 95 02/26/25 09:22 Oxygen Delivery Room Air 02/26/25 09:22 Temperature 97.9 F 02/26/25 09:22 Pulse Rate 94 02/26/25 11:56 Respiratory Rate 30 H 02/26/25 11:56 Blood Pressure 125/85 02/26/25 11:56 Pulse Oximetry 95 02/26/25 11:56 Oxygen Delivery Room Air 02/26/25 09:22 Reviewed MDM - Nausea/Vomiting/Diarrhea MDM Narrative Medical decision making narrative: White count and glucose likely from retching. Blood in her vomitus likely from retching. Stable hemoglobin and hematocrit, normal platelets. Low suspicion for GI bleed. CMP improved from previous testing LFTs have improved. No ethanol. Drug screen shows evidence marijuana use. No peritoneal findings on exam. Abdomen nontender nondistended. Patient felt better after IV fluids and Zofran, she is given a p.o. challenge vomited a small amount, no blood is present in the vomit, she was given Reglan and p.o. challenge to get it was able to keep crackers and fluids down successfully. Will send patient home on Zofran, her urine did show an evidence of urinary tract infection however she denies any symptoms, will go ahead and treat her with cephalexin. Patient reports feeling better after fluids and antiemetics. Discussed physical exam findings. Advised supportive measures and signs/symptoms to go to the ER. Pt is appropriate for outpt treatment and f/u. Differential Diagnosis Differential diagnosis: Likely gastroenteritis, drug-induced nausea and vomiting and other (Hyperemesis syndrome) Lab Data Attestation: I reviewed the patient's lab results. 02/26/25 09:44 02/26/25 09:44 Labs: Lab Results 02/26/25 02/26/25 02/26/25 Range/Units 09:41 09:44 09:45 WBC 16.5 H (4.5-10.0) K/mm3 RBC 4.48 (4.2-5.4) M/mm3 Hgb 13.8 (12.0-15.0) g/dL Hct 41.1 (37.0-47.0) % MCV 91.7 (80-100) fl MCH 30.8 (26-34) pg MCHC 33.6 (32-36) g/dl RDW 13.2 (11.5-14.5) % Plt Count 242 D (150-375) k/mm3 MPV 10.1 (7.4-10.4) fl Immature Gran % (Auto) 0.3 (0-0.5) % Neut % (Auto) 82.8 H (45.5-73.1) % Lymph % (Auto) 10.8 L (18.3-44.2) % [place] % (Auto) 5.9 (2.6-8.5) % Eos % (Auto) 0.0 (0-4.4) % Baso % (Auto) 0.2 (0.2-1.2) % Lymph # (Auto) 1.78 (0.9-3.2) K/mm3 [place] # (Auto) 1.0 H (0.1-0.6) K/mm3 Eos # (Auto) 0.0 (0-0.3) K/mm3 Baso # (Auto) 0.0 (0.0-0.1) K/mm3 Abs Immat Gran (auto) 0.05 H (0.00-0.031) K/mm3 Absolute Neuts (auto) 13.7 H (1.3-6.7) K/mm3 Absolute Nucleated RBC 0.000 (0.0-0.012) K/mm3 Nucleated RBC % 0.0 (0.0-0.2) % PT 14.5 (11.1-14.7) Seconds INR 1.1 APTT 21.3 L (22.3-36.8) Seconds Sodium 137 (137-145) mmol/L Potassium 4.2 (3.4-5.0) mmol/L Chloride 97 L (98-107) mmol/L Carbon Dioxide 19 L (22-30) mmol/L Anion Gap 21 H (4-12) mmol/L BUN 17 (7-17) mg/dL Creatinine 0.69 L (0.7-1.0) mg/dL Estim Creat Clear Calc 83 ml/min Estimated GFR > 60 (59 - ) Glucose 240 H (65-110) mg/dL Calcium 9.5 (8.4-10.2) mg/dL Total Bilirubin 0.8 (0.2-1.3) mg/dL AST 57 H (14-36) U/L ALT 45 H (6-35) U/L Alkaline Phosphatase 67 (38-126) U/L Total Protein 7.3 (6.3-8.2) g/dL Albumin 4.9 (3.5-5.1) g/dL Lipase 11 L (23-300) U/L Urine Color (Yellow) Urine Appearance (Clear) Urine pH (5.0-9.0) Ur Specific [place] (1.001-1.035) Urine Protein (Negative) mg/dL Urine Glucose (UA) (Negative) mg/dL Urine Ketones (Negative) mg/dL Ur Blood (Man) (Negative) Urine Nitrate (Negative) Urine Bilirubin (Negative) Urine Urobilinogen (<2.0) mg/dL Leukocyte Esterase Rfl (Negative) ELINA/UL Urine RBC (0-2) /hpf Urine WBC (0-3) /hpf Ur Squamous Epith Cells (Few) /hpf Urine Bacteria /hpf Urine Casts POC Urine HCG, Qual Negative (Negative) Urine Opiates Screen (Negative) Urine Methadone Screen (Negative) Ur Barbiturates Screen (Negative) Ur Phencyclidine Scrn (Negative) Ur Amphetamine Screen (Negative) U Benzodiazepines Scrn (Negative) Urine Cocaine Screen (Negative) U Cannabinoids Screen (Negative) Ethyl Alcohol < 10 (<10) mg/dL Blood Type O Positive Antibody Screen Negative 02/26/25 Range/Units 11:11 WBC (4.5-10.0) K/mm3 RBC (4.2-5.4) M/mm3 Hgb (12.0-15.0) g/dL Hct (37.0-47.0) % MCV (80-100) fl MCH (26-34) pg MCHC (32-36) g/dl RDW (11.5-14.5) % Plt Count (150-375) k/mm3 MPV (7.4-10.4) fl Immature Gran % (Auto) (0-0.5) % Neut % (Auto) (45.5-73.1) % Lymph % (Auto) (18.3-44.2) % [place] % (Auto) (2.6-8.5) % Eos % (Auto) (0-4.4) % Baso % (Auto) (0.2-1.2) % Lymph # (Auto) (0.9-3.2) K/mm3 [place] # (Auto) (0.1-0.6) K/mm3 Eos # (Auto) (0-0.3) K/mm3 Baso # (Auto) (0.0-0.1) K/mm3 Abs Immat Gran (auto) (0.00-0.031) K/mm3 Absolute Neuts (auto) (1.3-6.7) K/mm3 Absolute Nucleated RBC (0.0-0.012) K/mm3 Nucleated RBC % (0.0-0.2) % PT (11.1-14.7) Seconds INR APTT (22.3-36.8) Seconds Sodium (137-145) mmol/L Potassium (3.4-5.0) mmol/L Chloride (98-107) mmol/L Carbon Dioxide (22-30) mmol/L Anion Gap (4-12) mmol/L BUN (7-17) mg/dL Creatinine (0.7-1.0) mg/dL Estim Creat Clear Calc ml/min Estimated GFR (59 - ) Glucose (65-110) mg/dL Calcium (8.4-10.2) mg/dL Total Bilirubin (0.2-1.3) mg/dL AST (14-36) U/L ALT (6-35) U/L Alkaline Phosphatase (38-126) U/L Total Protein (6.3-8.2) g/dL Albumin (3.5-5.1) g/dL Lipase (23-300) U/L Urine Color Yellow (Yellow) Urine Appearance Clear (Clear) Urine pH 5.5 (5.0-9.0) Ur Specific [place] 1.026 (1.001-1.035) Urine Protein 2+ H (Negative) mg/dL Urine Glucose (UA) 1+ H (Negative) mg/dL Urine Ketones 3+ H (Negative) mg/dL Ur Blood (Man) Trace (Negative) Urine Nitrate Negative (Negative) Urine Bilirubin Negative (Negative) Urine Urobilinogen 0.2 (<2.0) mg/dL Leukocyte Esterase Rfl Trace H (Negative) ELINA/UL Urine RBC 0-2 (0-2) /hpf Urine WBC 11-20 H (0-3) /hpf Ur Squamous Epith Cells Moderate (Few) /hpf Urine Bacteria 1+ H /hpf Urine Casts 0-2 POC Urine HCG, Qual (Negative) Urine Opiates Screen Negative (Negative) Urine Methadone Screen Negative (Negative) Ur Barbiturates Screen Negative (Negative) Ur Phencyclidine Scrn Negative (Negative) Ur Amphetamine Screen Negative (Negative) U Benzodiazepines Scrn Negative (Negative) Urine Cocaine Screen Negative (Negative) U Cannabinoids Screen Positive A (Negative) Ethyl Alcohol (<10) mg/dL Blood Type Antibody Screen Critical Care Time Critical Care Time Critical Care Time: No Discharge Plan Discharge Clinical Impression: Nausea & vomiting Qualifiers: Vomiting type: unspecified Qualified Code(s): R11.2 - Nausea with vomiting, unspecified Urinary tract infection Qualifiers: Urinary tract infection type: site unspecified Hematuria presence: without hematuria Qualified Code(s): N39.0 - Urinary tract infection, site not specified Patient Disposition: Home Condition: Stable Instructions: Urinary Tract Infection in Women (ED), Acute Nausea and Vomiting (ED) Additional Instructions: Lab work is reassuring. Please take Zofran as needed for nausea and vomiting. Take cephalexin as as directed for urinary tract infection. Follow-up with your PCP in 3-5 days. Return to the ER for any worsening nausea and vomiting, coffee-ground vomit, black or tarry stools, blood in her stool, fevers, severe abdominal pain, or any other concerns. Patient Language: Korean Prescriptions: New cephalexin 500 mg capsule 500 mg PO BID 5 Days Qty: 10 0RF ondansetron 4 mg tablet,disintegrating 4 mg PO Q8H PRN (Reason: nausea and vomiting) Qty: 10 0RF No Action citalopram 20 mg Tablet 20 mg PO DAILY ondansetron 4 mg tablet,disintegrating 4 mg PO Q8H PRN (Reason: nausea and vomiting) Qty: 14 0RF methadone Follow-up/Referrals: PHYSICIAN,JUNCTION MAKER [Primary Care Provider] - Time of Disposition: 12:57
[2025-02-26] MEDS: SODIUM CHLORIDE 0.9% IV 1,000 ML 999 ML IV CONT (10:08)
[2025-02-26] MEDS: ONDANSETRON INJ 4 MG/2 ML VIAL IV PUSH (10:08)
[2025-02-26 10:14] LABS: INR 1.1; Prothrombin Time 14.5 Seconds (11.1-14.7)
[2025-02-26 10:15] LABS: Alanine Aminotransferase 45 U/L (6-35); Albumin Level 4.9 g/dL (3.5-5.1); Alkaline Phosphatase 67 U/L (38-126); Anion Gap 21 mmol/L (4-12); Aspartate Amino Transferase 57 U/L (14-36); Bilirubin,Total 0.8 mg/dL (0.2-1.3); Blood Urea Nitrogen 17 mg/dL (7-17); Calcium 9.5 mg/dL (8.4-10.2); Carbon Dioxide 19 mmol/L (22-30); Chloride 97 mmol/L (98-107); Estimated CRCL calculation 83 ml/min; Estimated Glomerular Filt Rate > 60; Glucose 240 mg/dL (65-110); Lipase 11 U/L (23-300); Partial Thromboplastin Time 21.3 Seconds (22.3-36.8); Potassium 4.2 mmol/L (3.4-5.0); Sodium 137 mmol/L (137-145); Total Protein 7.3 g/dL (6.3-8.2)
[2025-02-26 11:29] LABS: Add Urine Microscopic? YES; Appearance Urine Clear (Clear); Glucose Urine UA 1+ mg/dL (Negative); Leukocyte Esterase Ur Trace LEU/UL (Negative); Nitrate Urine Negative (Negative); Non Pathogenic Casts 0-2; Specific Grav Ur 1.026 (1.001-1.035)
[2025-02-26 11:52] LABS: Cannabinoid Screen Urine Positive (Negative)
[2025-02-26 11:56] VITALS: BP 125/85; PULSE 94; RESP 30; O2SAT 95
[2025-02-26] MEDS: METOCLOPRAMIDE HCL INJ 10 MG/2 ML VIAL IV PUSH (12:22)
[2025-02-26 13:03] LABS: BEDSIDEPREGUCG Negative (Negative)
== END 2025-02-26 13:45 | disposition home or self-care (01) ==
DX: R11.2 Nausea with vomiting, unspecified (principal); N39.0 Urinary tract infection, site not specified; F41.8 Other specified anxiety disorders
CPT/HCPCS: 36415; 80053; 80307; 81001; 81025; 82077; 83690; 85025; 85610; 85730; 86850; 86900; 86901; 96361; 96374; 96375; 99284; J1200; J2405; J2765; J7030

== ENCOUNTER 2025-03-04 22:06 | Emergency (ER) | payer OTHER, SELFPAY ==
[2025-03-04 21:57] VITALS: BP 128/87; PULSE 127; RESP 16; TEMP 36.7; O2SAT 98
[2025-03-04 22:03] VITALS: PULSE 127
--- OUTSIDE RECORDS SUMMARY | 2025-03-04 22:38 | XMS_ITS | Patient Health Record ---
Author Organization [facility] Address [address] [place] [address] Care Team Providers Care Dust Puller Name Role Phone Rajat Dashawn Primary Care Provider [phone] Solitario Smith Unavailable [phone] Ana Gallo Unavailable [phone] Jerome Montez Unavailable [phone] Elly Landis Unavailable [phone] Marjorie Garza Unavailable [phone] Gisella Rivera Unavailable [phone] Allergies No Known Allergies Results Component Value Reference Range Notes Medication Assisted Treatmen t (MAT) Buprenorphine, Norbuprenorphine, and Naloxone MS Confirmation, Urine Reviewed date:03/16/2024 09:14:04 AM Interpretation: Performing Lab:[facility], [address] [facility], Phone - [phone], Director - [facility] Notes/Report: Creatinine 73 Testing Threshold: buprenorphine, 1.0 ng/mL norbuprenorphine, 5.0 ng/mL naloxone, 10 ng/mL This test was developed and its performance characteristics determined by [facility]. It has not been cleared or approved by the Food and Drug Administration. REFERENCE RANGE: Ref Range>=20 BUPRENORPHINE ++POSITIVE++ Buprenorphine 170 Norbuprenorphine 556 N/B Ratio 3.27 >=0.3 OPIATE ANTAGONIST ++POSITIVE++ Naloxone 533 12 Panel Urine Drug Screen Reviewed date:05/12/2024 [...] POS 12 Panel Urine Drug Screen Reviewed date:03/11/2024 01:19:38 PM Interpretation: Performing Lab: Notes/Report: THC POS LINDA neg MOP (OPI) neg AMP neg MET neg BAR neg BZO neg MDMA neg MTD neg OXY neg PCP neg BUP POS Medication Assisted Treatmen t (MAT) Buprenorphine, Norbuprenorphine, and Naloxone MS Confirmation, Urine Reviewed date:01/12/2025 09:37:38 AM Interpretation: Performing Lab:[facility], [address] [place] [address], Phone - [phone], Director - Audra Notes/Report: Creatinine 33 >=20 [...] POS 12 Panel Urine Drug Screen Reviewed date:03/30/2024 09:10:05 AM Interpretation: Performing Lab: Notes/Report: THC POS LINDA neg MOP (OPI) neg AMP neg MET neg BAR neg BZO neg MDMA neg MTD neg OXY neg PCP neg BUP POS 14 Panel Urine Drug Screen Reviewed date:01/05/2025 01:50:29 PM Interpretation: Performing Lab: Notes/Report: THC POS LINDA neg MOP (OPI) POS AMP neg MET neg BAR neg BZO POS MDMA neg MTD neg OXY neg PCP neg BUP POS TCA neg FTY neg 12 Panel Urine Drug Screen Reviewed date:11/06/2024 09:56:20 AM Interpretation: Performing Lab: Notes/Report: THC POS LINDA neg MOP (OPI) neg AMP neg MET neg BAR neg BZO neg MDMA neg MTD neg OXY neg PCP neg BUP POS Urinalysis In-House, Routine Reviewed date:07/23/2024 01:31:49 PM Interpretation: Performing Lab: Notes/Report: Urine-Color clear Appearance yadi Leukocytes neg Nitrite, Urine pos Urobilinogen,Semi-Qn 0.2 Protein neg pH 5.5 Occult Blood mod Specific [place] 1.030 Ketones neg Bilirubin neg Glucose neg 12 Panel Urine Drug Screen Reviewed date:06/16/2024 [...] neg OXY neg PCP neg BUP pos 14 Panel Urine Drug Screen Reviewed date:02/18/2025 01:58:52 PM Interpretation: Performing Lab: Notes/Report: THC POS LINDA neg MOP (OPI) neg AMP neg MET neg BAR neg BZO neg MDMA neg MTD neg OXY neg PCP neg BUP POS TCA neg FTY neg 14 Panel Urine Drug Screen Reviewed date:12/25/2024 02:52:18 PM Interpretation: Performing Lab: Notes/Report: THC POS LINDA neg MOP (OPI) POS AMP neg MET neg BAR neg BZO POS MDMA neg MTD neg OXY neg PCP neg BUP POS TCA neg FTY neg Reason For Referral Reason Counseling (brief or long-term), significant other has terminal illness Diagnosis 1 Opioid use disorder (F11.99) Referral Organization [facility] Referring Provider First Name Gisella Referring Provider Last Name Miguel Referring Provider Speciality Psychiatry Referred Provider Specialty Behavioral [facility] Clinical Notes Adelina Acosta 024 11:21:37 AM > HN contacted client regarding referral for starting therapy with [facility]. HN provided client with process of calling central access for same day scheduling. Client was agreeable with the referral and stated no other needs at this time. Referral Priority Routine Reason Therapy = Client anish cheek benefit from immediate short term time limited therapy. She was able to get into therapy at [facility] in mid-July but is suffering with extreme anxiety/depression r/t BF's terminal illness. Diagnosis 1 Bipolar 1 disorder, depressed (F31.9) Diagnosis 2 Anxiety disorder, un specified (F41.9) Diagnosis 3 Insomnia, unspecifie d type (G47.00) Referral Organization [facility] Referring Provider First Name Jerome Referring Provider Last Name Tc Referring Provider Speciality Psychiatry Referred Provider Specialty Behavioral [facility] Clinical Notes Jenny Lino 02:36:07 PM > states has therapist at 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 Stress is when someone feels tense, nervous, anxious, or can\t sleep at night because their mind is troubled Somewhat In the past year have you sp ent more than 2 nights in a row in a retirement, long-term, skilled nursing center, or juvenile correctional facility? No Are [...] W/U Status Risk Notes Problem Anxiety disorder (935669953) Anxiety disorder, unspecified (F41.9) Active confirmed Problem Psychoactive substance dependence (6514240) Chemical dependency (F19.20) Active confirmed Problem Anxiety (25709504) Situational anxiety (F41.8) Active confirmed Problem Bipolar disorder (86884317) Bipolar 1 disorder, depressed (F31.9) Active confirmed Problem Insomnia (721026950) Insomnia, unspecified type (G47.00) Active confirmed Problem Reactive depression (situational) (49512638) Situational depression (F43.21) Active confirmed Problem Opioid use disorder (8582265952) Opioid use disorder (F11.99) Active confirmed Problem Tobacco user (919969102) Nicotine dependence with current use (F17.200) Active confirmed Problem Mental disorder caused by drug (985998636) Opioid use with opioid-induced disorder (F11.99) Active confirmed Vital Signs Heart Rate 70 /min 02/18/2025 Temperature 98.0 degrees Fahrenheit 11/06/2024 Respiratory Rate 16 /min 02/18/2025 Oximetry 95 % 02/18/2025 Blood pressure diastolic 78 mm Hg 02/18/2025 Height 64 in 02/18/2025 Blood pressure systolic 120 mm Hg 02/18/2025 Weight 125.8 lbs 02/18/2025 BMI 21.59 kg/m2 02/18/2025 Encounters Encounter Location Date Provider Diagnosis [address] [address] 03/11/2024 Gisella Rivera Opioid use disorder F11.[address] [place] [address] 03/11/2024 Ana Gallo [address] [address] 03/30/2024 Gisella Rivera Opioid use disorder F11.99 and Nicotine dependence, unspecified, uncomplicated F17.[address] [place] [address] 05/12/2024 Gisella Rivera Opioid use disorder F11.99 and Nicotine dependence, unspecified, uncomplicated F17.[address] [facility] [address] [address] 05/22/2024 Dashawn Earl Opioid use with opioid-induced disorder F11.99 ; Anxiety disorder, unspecified F41.9 ; Depression, unspecified F32.A ; Insomnia, unspecified type G47.00 and Nicotine dependence, unspecified, uncomplicated F17.[address] [address] 05/28/2024 Jerome Montez Nicotine dependence, unspecified, uncomplicated F17.200 ; Bipolar 1 disorder, depressed F31.9 and Anxiety disorder, unspecified F41.[address] [address] 06/10/2024 Jerome Montez Bipolar 1 disorder, depressed F31.9 ; Anxiety disorder, unspecified F41.9 and Insomnia, unspecified type G47.[address] [address] 06/16/2024 Gisella Rivera Opioid use disorder F11.99 and Nicotine dependence, unspecified, uncomplicated F17.[address] [address] 06/30/2024 Jerome Montez Bipolar 1 disorder, depressed F31.9 ; Insomnia, unspecified type G47.00 and Anxiety disorder, unspecified F41.[address] [address] 07/23/2024 Dashawn Earl Urinary symptom or sign R39.9 ; Opioid use disorder F11.99 and Nicotine dependence, unspecified, uncomplicated F17.[address] [address] 08/03/2024 Jerome Montez Bipolar 1 disorder, depressed F31.9 ; Insomnia, unspecified type G47.00 and Anxiety disorder, unspecified F41.[address] [address] 08/27/2024 Dashawn Earl Opioid use disorder F11.99 and Nicotine dependence, unspecified, uncomplicated F17.[address] [address] 09/07/2024 Jerome Montez Bipolar 1 disorder, depressed F31.9 ; Anxiety disorder, unspecified F41.9 and Insomnia, unspecified type G47.[address] [address] 11/06/2024 Daisyshantell Bojorqueznathaly Opioid use with opioid-induced disorder F11.99 and Nicotine dependence with current use F17.[address] [place] [address] 12/25/2024 Ellymeg Andinoan Opioid use with opioid-induced disorder F11.99 and Nicotine dependence with current use F17.[address] [address] 12/28/2024 Jerome Montez Bipolar 1 disorder, depressed F31.9 ; Anxiety disorder, unspecified F41.9 and Insomnia, unspecified type G47.[address] [place] [address] 01/05/2025 Gisella Szlufik Opioid use with opioid-induced disorder F11.[address] [address] 02/18/2025 Gisella Szlufik Opioid use with opioid-induced disorder F11.[address] [address] 06/08/2024 Jerome Montez [address] [address] 06/26/2024 Jerome Montez [address] [place] [address] 07/01/2024 Jerome Montez [address] [address] 07/02/2024 Jerome Montez Bipolar 1 disorder, depressed F31.[address] [place] [address] 07/29/[address] [place] [address] 12/11/2024 Jerome Montez Bipolar 1 disorder, depressed F31.9 ; Anxiety disorder, unspecified F41.9 and Insomnia, unspecified type G47.[address] [place] [address] 01/01/2025 Marjorie Garza [address] [address] 02/10/2025 Gisella Rivera Opioid use with opioid-induced disorder F11.99 Assessments Encounter Date Diagnosis (ICD Code) Assessment Notes Treatment Notes Treatment Clinical Notes Section Notes 02/18/2025 Opioid use with opioid-induced disorder (ICD-10 - F11.99) 02/10/2025 Opioid use with opioid-induced disorder (ICD-10 - F11.99) 01/05/2025 Opioid use with opioid-induced disorder (ICD-10 - F11.99) Encouraged positive coping mechanisms 12/28/2024 Bipolar 1 disorder, depressed (ICD-10 - F31.9) 12/11/2024 Bipolar 1 disorder, depressed (ICD-10 - F31.9) 11/06/2024 Nicotine dependence with current use (ICD-10 - F17.200) 11/06/2024 Opioid use with opioid-induced disorder (ICD-10 - F11.99) 07/23/2024 Urinary symptom or sign (ICD-10 - R39.9) 07/23/2024 Opioid use disorder (ICD-10 - F11.99) 07/02/2024 Bipolar 1 disorder, depressed (ICD-10 - F31.9) 06/30/2024 Bipolar 1 disorder, depressed (ICD-10 - F31.9) Increase to trazodone and olanzapine at night ordered and olanzapine changed to disintegrating to help with sleep initiation. Referral placed for request for immediate short term therapy to bridge client till mid July appt at [facility]. Client is agreeable to these treatment plan changes. 06/16/2024 Nicotine dependence, unspecified, uncomplicated (ICD-10 - F17.200) 06/16/2024 Opioid use disorder (ICD-10 - F11.99) 05/12/2024 Nicotine dependence, unspecified, uncomplicated (ICD-10 - F17.200) 05/12/2024 Opioid use disorder (ICD-10 - F11.99) 03/30/2024 Nicotine dependence, unspecified, uncomplicated (ICD-10 - F17.200) 03/30/2024 Opioid use disorder (ICD-10 - F11.99) 03/11/2024 Opioid use disorder (ICD-10 - F11.99) 06/10/2024 Bipolar 1 disorder, depressed (ICD-10 - F31.9) Client agreeable to increase in olanzapine and fluoxetine to aide with anxiety and depression and trazodone to aide with insomnia. Ativan refilled for use as rescue medication for panic attacks and to be used as secondary medication only. 12/25/2024 Opioid use with opioid-induced disorder (ICD-10 [...] the office with any questions or concerns. 09/07/2024 Bipolar 1 disorder, depressed (ICD-10 - [...] process. No other changes to treatment plan. 08/27/2024 Opioid use disorder (ICD-10 - F11.99) 08/03/2024 [...] better with higher dosage. Client verbalizes understanding. 05/28/2024 Nicotine dependence, unspecified, uncomplicated (ICD-10 - [...] and has not been doing well. 05/22/2024 Opioid use with opioid-induced disorder (ICD-10 - F11.99) 05/22/2024 Anxiety disorder, unspecified (ICD-10 - F41.9) 05/22/2024 Depression, unspecified (ICD-10 - F32.A) 05/28/2024 Anxiety disorder, unspecified (ICD-10 - F41.9) Client agreeable to starting olanzapine/fluox etine combination to treat high levels of anxiety/depressi on that appears to also have basis in bipolar 1 when carefully screened. Client with high level of stressors currently as BF dx with rare form of cancer and has not been doing well. 08/03/2024 Insomnia, unspecified type (ICD-10 - G47.00) [...] Nicotine dependence, unspecified, uncomplicated (ICD-10 - F17.200) 09/07/2024 Anxiety disorder, unspecified (ICD-10 - F41.9) [...] process. No other changes to treatment plan. 12/25/2024 Nicotine dependence with current use (ICD-10 - F17.200) 06/10/2024 Anxiety disorder, unspecified (ICD-10 - F41.9) Client agreeable to increase in olanzapine and fluoxetine to aide with anxiety and depression and trazodone to aide with insomnia. Ativan refilled for use as rescue medication for panic attacks and to be used as secondary medication only. 06/30/2024 Insomnia, unspecified type (ICD-10 - G47.00) Increase to trazodone and olanzapine at night ordered and olanzapine changed to disintegrating to help with sleep initiation. Referral placed for request for immediate short term therapy to bridge client till july appt at [facility]. Client is agreeable to these treatment plan changes. 07/23/2024 Nicotine dependence, unspecified, uncomplicated (ICD-10 - F17.200) 12/28/2024 Anxiety disorder, unspecified (ICD-10 - F41.9) 12/11/2024 Anxiety disorder, unspecified (ICD-10 - F41.9) 12/28/2024 Insomnia, unspecified type (ICD-10 - G47.00) 12/11/2024 Insomnia, unspecified type (ICD-10 - G47.00) 06/30/2024 Anxiety disorder, unspecified (ICD-10 - F41.9) Increase to trazodone and olanzapine at night ordered and olanzapine changed to disintegrating to help with sleep initiation. Referral placed for request for immediate short term therapy to bridge client till july appt at [facility]. Client is agreeable to these treatment plan changes. 06/10/2024 Insomnia, unspecified type (ICD-10 - G47.00) Client agreeable to increase in olanzapine and fluoxetine to aide with anxiety and depression and trazodone to aide with insomnia. Ativan refilled for use as rescue medication for panic attacks and to be used as secondary medication only. 09/07/2024 Insomnia, unspecified type (ICD-10 - G47.00) [...] No other changes to treatment plan. 08/03/2024 Anxiety disorder, unspecified (ICD-10 - F41.9) [...] better with higher dosage. Client verbalizes understanding. 05/22/2024 Insomnia, unspecified type (ICD-10 - G47.00) 05/22/2024 [...] number to the 24-hour crisis line at [facility]. Questions addressed. Client verbalized understanding of all [...] number to the 24-hour crisis line at [facility]. Questions addressed. Client verbalized understanding of all [...] number to the 24-hour crisis line at [facility]. Questions addressed. Client verbalized understanding of all information and is agreeable to treatment plan. Increase to trazodone and olanzapine at night ordered and olanzapine changed to disintegrating to help with sleep initiation. Referral placed for request for immediate short term therapy to bridge client till mid July appt at [facility]. Client is agreeable to these treatment [...] number to the 24-hour crisis line at [facility]. Questions addressed. Client verbalized understanding of all [...] number to the 24-hour crisis line at [facility]. Questions addressed. Client verbalized understanding of all [...] self-administ er their own oral medications per [facility] Protocol. 12/28/2024 Other Discussed sleep hygiene and [...] number to the 24-hour crisis line at [facility]. Questions addressed. Client verbalized understanding of all [...] self-administ er their own oral medications per [facility] Protocol. 02/18/2025 Other Offered counseling referral, patient [...] self-administ er their own oral medications per [facility] Protocol. Plan Of Treatment No Information Insurance Providers Payer Name Payer Address Payer Phone Subscriber Number Group Number Insured Name Patient Relationship to Insured Coverage Start Date Coverage End Date [employer] [facility] Attn Claims Department [address] [place] [address] [phone] [id number] Naila Harry Self - patient is the insured 0 [employer] Att[employer] Claims Department [address] [place] [address] [phone] [id number] Naila Harry Self - patient is the insured 0 Medical (General) History Medical History History ICD Code OUD [place] Surgical History Surgery Date(Month/Year) Hospitalization History Reason Date(Month/Year) alcohol poisoning 05/2024 [facility] 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
--- OUTSIDE RECORDS SUMMARY | 2025-03-04 22:38 | XMS_ITS | Clinical Summary ---
Author Organization [facility] Address [address] [place] [address] Phone Care Team Providers Care Associate Artistic Director Name Role Phone JenniferRubi phelps [place] CAO, [...] this topic Insurance MEDICAID [employer] [facility] [address] Care Teams Associate Artistic Director Relationship Specialty Start Date End Date Rubi Rodriguez, DEVELOPMENT CHEMIST, LENS INSPECTOR [address] [place] [address] PCP - General Advanced Practice Nurse 12/10/22
--- OUTSIDE RECORDS SUMMARY | 2025-03-04 22:38 | XMS_ITS | Clinical Summary ---
Author Organization [facility] Address [address] [place] [address] Care Team Providers Care Transition Nurse Name Role Phone Prachi Devika Unavailable Unavailable Rubi Rodriguez SHERIFF OFFICER Primary Care Provider Allergies No known active [...] day. Assessment & Plan (09/28/2022 12:44 PM LIME SLUDGE KILN OPERATOR): Patient tells me that she does not [...] interval. Assessment & Plan (09/28/2022 1:18 PM LIME SLUDGE KILN OPERATOR): We discussed the clinical scenario from last [...] alteration of awareness History of substance abuse ([facility]) Tobacco abuse Assessment & Plan (09/28/2022 12:43 PM LIME SLUDGE KILN OPERATOR): Patient says he still smoking. I advised [...] (12% ABV) Social Connection and Isolation Panel Answer Date Recorded In a typical week, how many times do you talk on the phone with family, friends, or neighbors? Patient declined 09/04/2022 How often do you get togethe r with friends or relatives? Patient declined 09/04/2022 How often do you attend uatsdin or episcopal serv ices? Never 09/04/2022 Do you belong to any clubs o r organizations such as uatsdin groups, unions, fraternal or athletic groups, or [...] place to sleep or slept in a prison (including now)? Yes 09/04/2022 Personal Safety Answer Date Recorded Getting School Help Needed Not on file 04/03 Comments No Sex and Gender Information Value Date Recorded Sex Assigned at Not on file Legal Sex Female 3:55 AM LIME SLUDGE KILN OPERATOR Gender Identity Not on file Sexual Orientation [...] Vaccines Completed 09/24/2007, 04/21, 03/04/2007 Insurance [facility] MEDICAID [facility] [address] [place] [address] [facility] [address] [place] [address] [facility] Advance Directives For more information, please contact: [phone] Documents on File Type Date Recorded Patient Seed District Sales Manager Expl anation ADVANCE DIRECTIVE 05/16/2020 1:42 PM Jluis taylor of Software Development Manager-Medical * Full Code (Latest Code Status on File) Date Activated Date Inactivated Comments 08/31/2022 12:25 AM 09/07/2022 12:40 PM * Full Code Date Activated Date Inactivated Comments 05/16/2020 3:57 PM 05/19/2020 4:04 PM * Full Code Date Activated Date Inactivated Comments 02/25/2018 6:38 AM 02/27/2018 2:38 PM Care Teams Transition Nurse Relationship Specialty Start Date End Date Rubi Rodriguez NP [address] [address] PCP - General Family Medicine 05/23/22 Devika Velarde Hand Surgeon Addiction Medicine 07/12/20
[2025-03-04 22:52] LABS: Hematocrit 45.0 % (37.0-47.0); Hemoglobin 15.1 g/dL (12.0-15.0); Immature Granulocyte Percent A 0.8 % (0-0.5); Lymphocytes Absolute Auto 1.16 K/mm3 (0.9-3.2); Mean Corpuscular HGB Conc 33.6 g/dl (32-36); Mean Corpuscular Hemoglobin 30.5 pg (26-34); Mean Corpuscular Volume 90.9 fl (80-100); Nucleated Red Blood Cells Absolute Auto 0.000 K/mm3 (0.0-0.012); Nucleated Red Blood Cells Perc 0.0 % (0.0-0.2); Platelet Count Result 280 k/mm3 (150-375); Red Blood Count 4.95 M/mm3 (4.2-5.4); White Blood Count 12.7 K/mm3 (4.5-10.0)
[2025-03-04 23:02] LABS: Alanine Aminotransferase 34 U/L (6-35); Albumin Level 5.2 g/dL (3.5-5.1); Alkaline Phosphatase 78 U/L (38-126); Anion Gap 26 mmol/L (4-12); Aspartate Amino Transferase 41 U/L (14-36); Bilirubin,Total 0.6 mg/dL (0.2-1.3); Blood Urea Nitrogen 11 mg/dL (7-17); Calcium 8.5 mg/dL (8.4-10.2); Carbon Dioxide 16 mmol/L (22-30); Chloride 95 mmol/L (98-107); Estimated CRCL calculation 80 ml/min; Estimated Glomerular Filt Rate > 60; Glucose 123 mg/dL (65-110); Potassium 4.0 mmol/L (3.4-5.0); Sodium 137 mmol/L (137-145); Total Protein 8.1 g/dL (6.3-8.2)
--- NOTE | 2025-03-04 23:02 | ED_ITS ---
HPI - Alcohol General Chief Complaint: Alcohol <Evan Roman MD - Last Filed: 03/06/25 06:54> Stated Complaint: AMS, ETOH+, SI+ <Evan Roman MD - Last Filed: 03/06/25 06:54> Time Seen by Provider: 03/04/25 22:10 <Evan Roman MD - Last Filed: 03/06/25 06:54> History of Present Illness HPI narrative: 34-year-old female with history substance abuse including alcohol and opiates. She is on daily Suboxone. She endorses daily alcohol intake. She presents with nausea and vomiting and states she drank too much today. She drank a handle of vodka earlier today. Endorses vomiting several times a day but no traumatic injuries. She was otherwise in her normal state of health. Last drink approximately 1:00 p.m.. In triage she endorse suicidality but no plan and during my assessment she denies any plans or suicidal ideation. No homicidal ideation or psychiatric illness. She is visibly intoxicated with them emesis stands on her clothing. Not any acute distress. Placed into room 1 for evaluation and treatment. <Evan Roman MD - Last Filed: 03/06/25 06:54> Related Data Home Medications: Home Medications ?Medication ?Instructions ?Recorded ?Confirmed ?Last Taken ?Type citalopram 20 mg tablet 20 mg PO DAILY 01/24/21 08/28/21 Unknown History methadone 04/02/21 Unknown History No Home Medications 03/04/25 03/04/25 Unknown History <Evan Roman MD - Last Filed: 03/06/25 06:54> Allergies/Adverse Reactions: Allergies Allergy/AdvReac Type Severity Reaction Status Date / Time No Known Drug Allergies Allergy Unknown Unknown Verified 03/04/25 23:32 <Evan Roman MD - Last Filed: 03/06/25 06:54> Review of Systems 2 Review of Systems: As reviewed above in HPI <Evan Roman MD - Last Filed: 03/06/25 06:54> PMFSH Past Medical History Medical History: Medical History Anorexia History of kidney problems states that kidney's don't filter good Anxiety and depression <Evan Roman MD - Last Filed: 03/06/25 06:54> Surgical History Surgical History: Surgical History No pertinent past surgical history <Evan Roman MD - Last Filed: 03/06/25 06:54> Family History Family History: Family History Other Hypertension <Evan Roman MD - Last Filed: 03/06/25 06:54> Social History Social History: Social History Smoking status: Unknown if ever smoked Alcohol intake: former Substance use: former 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 Mucous membranes moist. NECK: Supple. CHEST: [Clear to auscultation. No respiratory distress.] HEART: Tachycardic rate, regular rhythm. No murmur heard. [Normal peripheral pulses.] ABDOMEN: [Soft, nondistended], [nontender], [No rigidity or guarding] EXTREMITIES: Normal range of motion. [No edema.] SKIN: Warm, dry, no rash. NEURO: [No focal deficits]. Alert and oriented [x3.] PSYCH: [Normal mood and affect.] <Evan Roman MD - Last Filed: 03/06/25 06:54> Course Course Emergency Course: NidaYCH: Patient woke up and eloped from hospital. <Mansoor Brewer MD - Last Filed: 03/05/25 12:18> Vital Signs Vital signs: Vital Signs Temperature 36.7 C 03/04/25 21:57 Pulse Rate 127 H 03/04/25 21:57 Respiratory Rate 16 03/04/25 21:57 Blood Pressure 128/87 03/04/25 21:57 Pulse Oximetry 98 03/04/25 21:57 Oxygen Delivery Room Air 03/04/25 21:57 Temperature 36.7 C 03/04/25 21:57 Pulse Rate 100 03/05/25 07:45 Respiratory Rate 18 03/05/25 07:45 Blood Pressure 113/77 03/05/25 07:45 Pulse Oximetry 100 03/05/25 07:45 Oxygen Delivery Room Air 03/05/25 00:28 <Evan Roman MD - Last Filed: 03/06/25 06:54> Vital Signs Temperature 36.7 C 03/04/25 21:57 Pulse Rate 127 H 03/04/25 21:57 Respiratory Rate 16 03/04/25 21:57 Blood Pressure 128/87 03/04/25 21:57 Pulse Oximetry 98 03/04/25 21:57 Oxygen Delivery Room Air 03/04/25 21:57 Temperature 36.7 C 03/04/25 21:57 Pulse Rate 100 03/05/25 07:45 Respiratory Rate 18 03/05/25 07:45 Blood Pressure 113/77 03/05/25 07:45 Pulse Oximetry 100 03/05/25 07:45 Oxygen Delivery Room Air 03/05/25 00:28 <Mansoor Brewer MD - Last Filed: 03/05/25 12:18> MDM - Alcohol MDM Narrative Medical decision making narrative: 34-year-old female with history substance abuse including alcohol and opiates. She is on daily Suboxone. She endorses daily alcohol intake. She presents with nausea and vomiting and states she drank too much today. She drank a handle of vodka earlier today. Endorses vomiting several times a day but no traumatic injuries. She was otherwise in her normal state of health. Last drink approximately 1:00 p.m.. In triage she endorse suicidality but no plan and during my assessment she denies any plans or suicidal ideation. No homicidal ideation or psychiatric illness. She is visibly intoxicated with them emesis stands on her clothing. Not any acute distress. Placed into room 1 for evaluation and treatment. Patient is in no physical distress but is slightly tachycardic and Dr. Thompson in. Emesis on her clothing with nausea and vomiting likely secondary from alcoholic intoxication and gastritis type symptoms. She was given fluids, antiemetics, psychiatric laboratory studies were obtained as well as alcohol level. She was placed on pulse oximetry and secured entrance monitor and re-evaluated frequently. Patient responded well to IV Haldol, resting comfortably, not in any distress. Elevated alcohol level of 333. Urine drug screen negative. Dehydration with hemoconcentrated CBC. Electrolytes show anion gap acidosis secondary to starvation versus alcoholic ketosis. Normal BUN and creatinine. Glucose unremarkable. No significant LFT elevations. TSH low but free T4 normal. Urinalysis has ketones but negative test. Patient resting comfortably with improved vital signs, did require additional dose of 0.5 mg IV Ativan as she woke up in the night and was feeling anxious and wanting something to help her sleep. Repeat blood draw including repeat alcohol level and BMP to be obtained at approximately 9:00 a.m. for sobriety and given her initial triage complaints with noted suicidal ideation she will be screened once again for SI/HI. Patient care signed over to oncoming ER physician pending re-evaluation and final disposition. <Evan Roman MD - Last Filed: 03/06/25 06:54> Lab Data Result diagrams: 03/04/25 22:45 03/05/25 08:26 <Evan Roman MD - Last Filed: 03/06/25 06:54> Labs: Lab Results 03/04/25 03/04/25 03/04/25 Range/Units 22:35 22:45 22:46 WBC 12.7 H (4.5-10.0) K/mm3 RBC 4.95 (4.2-5.4) M/mm3 Hgb 15.1 H (12.0-15.0) g/dL Hct 45.0 (37.0-47.0) % MCV 90.9 (80-100) fl MCH 30.5 (26-34) pg MCHC 33.6 (32-36) g/dl RDW 13.9 (11.5-14.5) % Plt Count 280 (150-375) k/mm3 MPV 9.2 (7.4-10.4) fl Immature Gran % (Auto) 0.8 H (0-0.5) % Neut % (Auto) 85.5 H (45.5-73.1) % Lymph % (Auto) 9.1 L (18.3-44.2) % Story % (Auto) 4.4 (2.6-8.5) % Eos % (Auto) 0.0 (0-4.4) % Baso % (Auto) 0.2 (0.2-1.2) % Lymph # (Auto) 1.16 (0.9-3.2) K/mm3 Story # (Auto) 0.6 (0.1-0.6) K/mm3 Eos # (Auto) 0.0 (0-0.3) K/mm3 Baso # (Auto) 0.0 (0.0-0.1) K/mm3 Abs Immat Gran (auto) 0.10 H (0.00-0.031) K/mm3 Absolute Neuts (auto) 10.9 H (1.3-6.7) K/mm3 Absolute Nucleated RBC 0.000 (0.0-0.012) K/mm3 Nucleated RBC % 0.0 (0.0-0.2) % Sodium 137 (137-145) mmol/L Potassium 4.0 (3.4-5.0) mmol/L Chloride 95 L (98-107) mmol/L Carbon Dioxide 16 L (22-30) mmol/L Anion Gap 26 H (4-12) mmol/L BUN 11 D (7-17) mg/dL Creatinine 0.71 (0.7-1.0) mg/dL Estim Creat Clear Calc 80 ml/min Estimated GFR > 60 (59 - ) Glucose 123 H (65-110) mg/dL Calcium 8.5 (8.4-10.2) mg/dL Total Bilirubin 0.6 (0.2-1.3) mg/dL AST 41 H (14-36) U/L ALT 34 (6-35) U/L Alkaline Phosphatase 78 (38-126) U/L Total Protein 8.1 (6.3-8.2) g/dL Albumin 5.2 H (3.5-5.1) g/dL TSH (Reflex) 0.032 L (0.465-4.68) uIU/mL Free T4 1.35 (0.78-2.19) ng/dL Total T3 0.65 L (0.82-1.58) NG/ML Urine Color (Yellow) Urine Appearance (Clear) Urine pH (5.0-9.0) Ur Specific [place] (1.001-1.035) Urine Protein (Negative) mg/dL Urine Glucose (UA) (Negative) mg/dL Urine Ketones (Negative) mg/dL Ur Blood (Man) (Negative) Urine Nitrate (Negative) Urine Bilirubin (Negative) Urine Urobilinogen (<2.0) mg/dL Add Ur Microanalysis Leukocyte Esterase Rfl (Negative) ELINA/UL Urine RBC (0-2) /hpf Urine WBC (0-3) /hpf Ur Squamous Epith Cells (Few) /hpf Urine Bacteria /hpf Urine Casts Hyaline Casts (None) /lpf POC Urine HCG, Qual (Negative) Urine Opiates Screen (Negative) Urine Methadone Screen (Negative) Ur Barbiturates Screen (Negative) Ur Phencyclidine Scrn (Negative) Ur Amphetamine Screen (Negative) U Benzodiazepines Scrn (Negative) Urine Cocaine Screen (Negative) U Cannabinoids Screen (Negative) Ethyl Alcohol 333 H* (<10) mg/dL Influenza A (RT-PCR) Negative (Negative) Influenza B (RT-PCR) Negative (Negative) RSV (RT-PCR) Negative (Negative) SARS-CoV-2 RNA (RT-PCR) Negative (Negative) 03/05/25 03/05/25 03/05/25 Range/Units 00:47 00:49 08:26 WBC (4.5-10.0) K/mm3 RBC (4.2-5.4) M/mm3 Hgb (12.0-15.0) g/dL Hct (37.0-47.0) % MCV (80-100) fl MCH (26-34) pg MCHC (32-36) g/dl RDW (11.5-14.5) % Plt Count (150-375) k/mm3 MPV (7.4-10.4) fl Immature Gran % (Auto) (0-0.5) % Neut % (Auto) (45.5-73.1) % Lymph % (Auto) (18.3-44.2) % Story % (Auto) (2.6-8.5) % Eos % (Auto) (0-4.4) % Baso % (Auto) (0.2-1.2) % Lymph # (Auto) (0.9-3.2) K/mm3 Story # (Auto) (0.1-0.6) K/mm3 Eos # (Auto) (0-0.3) K/mm3 Baso # (Auto) (0.0-0.1) K/mm3 Abs Immat Gran (auto) (0.00-0.031) K/mm3 Absolute Neuts (auto) (1.3-6.7) K/mm3 Absolute Nucleated RBC (0.0-0.012) K/mm3 Nucleated RBC % (0.0-0.2) % Sodium 129 L (137-145) mmol/L Potassium 3.7 (3.4-5.0) mmol/L Chloride 92 L (98-107) mmol/L Carbon Dioxide 23 (22-30) mmol/L Anion Gap 14 H (4-12) mmol/L BUN 6 L D (7-17) mg/dL Creatinine 0.53 L (0.7-1.0) mg/dL Estim Creat Clear Calc 105 ml/min Estimated GFR > 60 (59 - ) Glucose 101 (65-110) mg/dL Calcium 8.3 L (8.4-10.2) mg/dL Total Bilirubin (0.2-1.3) mg/dL AST (14-36) U/L ALT (6-35) U/L Alkaline Phosphatase (38-126) U/L Total Protein (6.3-8.2) g/dL Albumin (3.5-5.1) g/dL TSH (Reflex) (0.465-4.68) uIU/mL Free T4 (0.78-2.19) ng/dL Total T3 (0.82-1.58) NG/ML Urine Color Yellow (Yellow) Urine Appearance Clear (Clear) Urine pH 5.5 (5.0-9.0) Ur Specific [place] 1.022 (1.001-1.035) Urine Protein 2+ H (Negative) mg/dL Urine Glucose (UA) 3+ H (Negative) mg/dL Urine Ketones 3+ H (Negative) mg/dL Ur Blood (Man) 1+ H (Negative) Urine Nitrate Negative (Negative) Urine Bilirubin Negative (Negative) Urine Urobilinogen 0.2 (<2.0) mg/dL Add Ur Microanalysis Reviewed Leukocyte Esterase Rfl Negative (Negative) ELINA/UL Urine RBC 0-2 (0-2) /hpf Urine WBC 0-5 (0-3) /hpf Ur Squamous Epith Cells Occasional (Few) /hpf Urine Bacteria None seen /hpf Urine Casts 3-5 Hyaline Casts Present (None) /lpf POC Urine HCG, Qual Negative (Negative) Urine Opiates Screen Negative (Negative) Urine Methadone Screen Negative (Negative) Ur Barbiturates Screen Negative (Negative) Ur Phencyclidine Scrn Negative (Negative) Ur Amphetamine Screen Negative (Negative) U Benzodiazepines Scrn Negative (Negative) Urine Cocaine Screen Negative (Negative) U Cannabinoids Screen Negative (Negative) Ethyl Alcohol 20 (<10) mg/dL Influenza A (RT-PCR) (Negative) Influenza B (RT-PCR) (Negative) RSV (RT-PCR) (Negative) SARS-CoV-2 RNA (RT-PCR) (Negative) <Evan Roman MD - Last Filed: 03/06/25 06:54> Lab Results 03/04/25 03/04/25 03/04/25 Range/Units 22:35 22:45 22:46 WBC 12.7 H (4.5-10.0) K/mm3 RBC 4.95 (4.2-5.4) M/mm3 Hgb 15.1 H (12.0-15.0) g/dL Hct 45.0 (37.0-47.0) % MCV 90.9 (80-100) fl MCH 30.5 (26-34) pg MCHC 33.6 (32-36) g/dl RDW 13.9 (11.5-14.5) % Plt Count 280 (150-375) k/mm3 MPV 9.2 (7.4-10.4) fl Immature Gran % (Auto) 0.8 H (0-0.5) % Neut % (Auto) 85.5 H (45.5-73.1) % Lymph % (Auto) 9.1 L (18.3-44.2) % Story % (Auto) 4.4 (2.6-8.5) % Eos % (Auto) 0.0 (0-4.4) % Baso % (Auto) 0.2 (0.2-1.2) % Lymph # (Auto) 1.16 (0.9-3.2) K/mm3 Story # (Auto) 0.6 (0.1-0.6) K/mm3 Eos # (Auto) 0.0 (0-0.3) K/mm3 Baso # (Auto) 0.0 (0.0-0.1) K/mm3 Abs Immat Gran (auto) 0.10 H (0.00-0.031) K/mm3 Absolute Neuts (auto) 10.9 H (1.3-6.7) K/mm3 Absolute Nucleated RBC 0.000 (0.0-0.012) K/mm3 Nucleated RBC % 0.0 (0.0-0.2) % Sodium 137 (137-145) mmol/L Potassium 4.0 (3.4-5.0) mmol/L Chloride 95 L (98-107) mmol/L Carbon Dioxide 16 L (22-30) mmol/L Anion Gap 26 H (4-12) mmol/L BUN 11 D (7-17) mg/dL Creatinine 0.71 (0.7-1.0) mg/dL Estim Creat Clear Calc 80 ml/min Estimated GFR > 60 (59 - ) Glucose 123 H (65-110) mg/dL Calcium 8.5 (8.4-10.2) mg/dL Total Bilirubin 0.6 (0.2-1.3) mg/dL AST 41 H (14-36) U/L ALT 34 (6-35) U/L Alkaline Phosphatase 78 (38-126) U/L Total Protein 8.1 (6.3-8.2) g/dL Albumin 5.2 H (3.5-5.1) g/dL TSH (Reflex) 0.032 L (0.465-4.68) uIU/mL Free T4 1.35 (0.78-2.19) ng/dL Total T3 0.65 L (0.82-1.58) NG/ML Urine Color (Yellow) Urine Appearance (Clear) Urine pH (5.0-9.0) Ur Specific [place] (1.001-1.035) Urine Protein (Negative) mg/dL Urine Glucose (UA) (Negative) mg/dL Urine Ketones (Negative) mg/dL Ur Blood (Man) (Negative) Urine Nitrate (Negative) Urine Bilirubin (Negative) Urine Urobilinogen (<2.0) mg/dL Add Ur Microanalysis Leukocyte Esterase Rfl (Negative) ELINA/UL Urine RBC (0-2) /hpf Urine WBC (0-3) /hpf Ur Squamous Epith Cells (Few) /hpf Urine Bacteria /hpf Urine Casts Hyaline Casts (None) /lpf POC Urine HCG, Qual (Negative) Urine Opiates Screen (Negative) Urine Methadone Screen (Negative) Ur Barbiturates Screen (Negative) Ur Phencyclidine Scrn (Negative) Ur Amphetamine Screen (Negative) U Benzodiazepines Scrn (Negative) Urine Cocaine Screen (Negative) U Cannabinoids Screen (Negative) Ethyl Alcohol 333 H* (<10) mg/dL Influenza A (RT-PCR) Negative (Negative) Influenza B (RT-PCR) Negative (Negative) RSV (RT-PCR) Negative (Negative) SARS-CoV-2 RNA (RT-PCR) Negative (Negative) 03/05/25 03/05/25 03/05/25 Range/Units 00:47 00:49 08:26 WBC (4.5-10.0) K/mm3 RBC (4.2-5.4) M/mm3 Hgb (12.0-15.0) g/dL Hct (37.0-47.0) % MCV (80-100) fl MCH (26-34) pg MCHC (32-36) g/dl RDW (11.5-14.5) % Plt Count (150-375) k/mm3 MPV (7.4-10.4) fl Immature Gran % (Auto) (0-0.5) % Neut % (Auto) (45.5-73.1) % Lymph % (Auto) (18.3-44.2) % Story % (Auto) (2.6-8.5) % Eos % (Auto) (0-4.4) % Baso % (Auto) (0.2-1.2) % Lymph # (Auto) (0.9-3.2) K/mm3 Story # (Auto) (0.1-0.6) K/mm3 Eos # (Auto) (0-0.3) K/mm3 Baso # (Auto) (0.0-0.1) K/mm3 Abs Immat Gran (auto) (0.00-0.031) K/mm3 Absolute Neuts (auto) (1.3-6.7) K/mm3 Absolute Nucleated RBC (0.0-0.012) K/mm3 Nucleated RBC % (0.0-0.2) % Sodium 129 L (137-145) mmol/L Potassium 3.7 (3.4-5.0) mmol/L Chloride 92 L (98-107) mmol/L Carbon Dioxide 23 (22-30) mmol/L Anion Gap 14 H (4-12) mmol/L BUN 6 L D (7-17) mg/dL Creatinine 0.53 L (0.7-1.0) mg/dL Estim Creat Clear Calc 105 ml/min Estimated GFR > 60 (59 - ) Glucose 101 (65-110) mg/dL Calcium 8.3 L (8.4-10.2) mg/dL Total Bilirubin (0.2-1.3) mg/dL AST (14-36) U/L ALT (6-35) U/L Alkaline Phosphatase (38-126) U/L Total Protein (6.3-8.2) g/dL Albumin (3.5-5.1) g/dL TSH (Reflex) (0.465-4.68) uIU/mL Free T4 (0.78-2.19) ng/dL Total T3 (0.82-1.58) NG/ML Urine Color Yellow (Yellow) Urine Appearance Clear (Clear) Urine pH 5.5 (5.0-9.0) Ur Specific [place] 1.022 (1.001-1.035) Urine Protein 2+ H (Negative) mg/dL Urine Glucose (UA) 3+ H (Negative) mg/dL Urine Ketones 3+ H (Negative) mg/dL Ur Blood (Man) 1+ H (Negative) Urine Nitrate Negative (Negative) Urine Bilirubin Negative (Negative) Urine Urobilinogen 0.2 (<2.0) mg/dL Add Ur Microanalysis Reviewed Leukocyte Esterase Rfl Negative (Negative) ELINA/UL Urine RBC 0-2 (0-2) /hpf Urine WBC 0-5 (0-3) /hpf Ur Squamous Epith Cells Occasional (Few) /hpf Urine Bacteria None seen /hpf Urine Casts 3-5 Hyaline Casts Present (None) /lpf POC Urine HCG, Qual Negative (Negative) Urine Opiates Screen Negative (Negative) Urine Methadone Screen Negative (Negative) Ur Barbiturates Screen Negative (Negative) Ur Phencyclidine Scrn Negative (Negative) Ur Amphetamine Screen Negative (Negative) U Benzodiazepines Scrn Negative (Negative) Urine Cocaine Screen Negative (Negative) U Cannabinoids Screen Negative (Negative) Ethyl Alcohol 20 (<10) mg/dL Influenza A (RT-PCR) (Negative) Influenza B (RT-PCR) (Negative) RSV (RT-PCR) (Negative) SARS-CoV-2 RNA (RT-PCR) (Negative) <Mansoor Brewer MD - Last Filed: 03/05/25 12:18> Discharge Plan Discharge Clinical Impression: Alcoholic intoxication, Alcoholic ketoacidosis <Evan Roman MD - Last Filed: 03/06/25 06:54> Patient Disposition: Elopement After Seen by Prov <Evan Roman MD - Last Filed: 03/06/25 06:54> Instructions: Alcohol Intoxication (ED), Abuse of Alcohol (ED), Alcohol Dependence (ED) <Evan Roman MD - Last Filed: 03/06/25 06:54> Additional Instructions: Refrain from drinking alcohol. Follow-up with regular doctor. <Evan Roman MD - Last Filed: 03/06/25 06:54> Patient Language: Irish <Evan Roman MD - Last Filed: 03/06/25 06:54> Prescriptions: No Action citalopram 20 mg Tablet 20 mg PO DAILY ondansetron 4 mg tablet,disintegrating 4 mg PO Q8H PRN (Reason: nausea and vomiting) Qty: 14 0RF cephalexin 500 mg capsule 500 mg PO BID 5 Days Qty: 10 0RF ondansetron 4 mg tablet,disintegrating 4 mg PO Q8H PRN (Reason: nausea and vomiting) Qty: 10 0RF No Home Medications methadone <Evan Roman MD - Last Filed: 03/06/25 06:54> Follow-up/Referrals: PHYSICIAN,SAS PROGRAMMER [Primary Care Provider] - <Evan Roman MD - Last Filed: 03/06/25 06:54>
[2025-03-04 23:27] LABS: Influenza A QL RT-PCR Negative (Negative); Influenza B QL RT-PCR Negative (Negative); RSV RNA, RT-PCR Negative (Negative); SARS-CoV-2 RNA PCR Negative (Negative)
[2025-03-04] MEDS: DEXTROSE 5%/LACTATED RINGERS 1,000 ML 1000 ML IV CONT (23:27)
[2025-03-04] MEDS: HALOPERIDOL LACTATE 5 MG/ML VIAL 2.5 MG IV PUSH (23:27)
[2025-03-04 23:38] LABS: Thyroid Stimulating Hormone Reflex 0.032 uIU/mL (0.465-4.68)
[2025-03-05 00:08] LABS: Free T4 Free Thyroxine Reflex 1.35 ng/dL (0.78-2.19)
[2025-03-05 00:28] VITALS: O2SAT 99
[2025-03-05] MEDS: THIAMINE HCL INJ 100 MG, FOLIC ACID INJ 1 MG, MAGNESIUM SULFATE INJ 1 GM in LACTATED RI... 1000 MG IV CONT (00:40)
[2025-03-05 00:43] VITALS: BP 129/64; PULSE 115; RESP 17; O2SAT 100
[2025-03-05 00:48] LABS: Total Triiodothyronine (T3) 0.65 NG/ML (0.82-1.58)
[2025-03-05 01:01] LABS: Add Urine Microscopic? YES; Appearance Urine Clear (Clear); Glucose Urine UA 3+ mg/dL (Negative); Leukocyte Esterase Ur Negative LEU/UL (Negative); Need Manual Microscopic Reviewed; Nitrate Urine Negative (Negative); Specific Grav Ur 1.022 (1.001-1.035)
[2025-03-05 01:30] VITALS: BP 129/80; PULSE 118; RESP 16; O2SAT 100
[2025-03-05 02:53] VITALS: BP 110/82; PULSE 105; RESP 14; O2SAT 100
[2025-03-05 04:52] VITALS: BP 114/80; PULSE 113; RESP 13; O2SAT 99
[2025-03-05 05:29] LABS: BEDSIDEPREGUCG Negative (Negative)
[2025-03-05 05:32] LABS: Cannabinoid Screen Urine Negative (Negative)
[2025-03-05] MEDS: LORazepam INJ (*CRX) 2 MG/ML VIAL 0.5 MG IV PUSH (06:07)
[2025-03-05 07:45] VITALS: BP 113/77; PULSE 100; RESP 18; O2SAT 100
[2025-03-05] MEDS: LACTATED RINGERS 1,000 ML 999 ML IV CONT (07:50)
--- NOTE | 2025-03-05 08:02 | PC.NURSE ---
Pt states she wants to go home. This nurse explained to pt that she needs to have repeat alcohol level drawn. Pt denies being suicidal at present. States I was just drunk.
[2025-03-05 08:54] LABS: Anion Gap 14 mmol/L (4-12); Blood Urea Nitrogen 6 mg/dL (7-17); Calcium 8.3 mg/dL (8.4-10.2); Carbon Dioxide 23 mmol/L (22-30); Chloride 92 mmol/L (98-107); Estimated CRCL calculation 105 ml/min; Estimated Glomerular Filt Rate > 60; Glucose 101 mg/dL (65-110); Potassium 3.7 mmol/L (3.4-5.0); Sodium 129 mmol/L (137-145)
--- NOTE | 2025-03-05 09:40 | PC.NURSE ---
Pt eloped from department to waiting room with steady gait.
== END 2025-03-05 09:48 | disposition left against medical advice (07) ==
PROVIDERS: Emergency Provider Student in an Organized Health Care Education/Training Program
DX: F10.129 Alcohol abuse with intoxication, unspecified (principal); E87.29 Other acidosis; Y90.8 Blood alcohol level of 240 mg/100 ml or more; Z11.52 Encounter for screening for COVID-19; F41.9 Anxiety disorder, unspecified; F32.A Depression, unspecified
CPT/HCPCS: 36415; 80048; 80053; 80307; 81001; 81025; 82077; 84439; 84443; 84480; 85025; 87637; 96361; 96374; 99284; J1630; J2060; J3411; J3475; J7120; J7121